=== PATIENT | female | born 1950 | race Caucasian/White ===

== ENCOUNTER 2018-08-04 16:54 | Emergency (ER) | payer MEDICARE, OTHER, SELFPAY ==
[2018-08-04 17:01] VITALS: BP 154/96; PULSE 89; RESP 19; TEMP 37; O2SAT 96; BMI 19.9
--- NOTE | 2018-08-04 17:16 | CT_ITS ---
STUDY: CT CERVICAL SPINE WITHOUT CONTRAST REASON FOR EXAM: Female, 68 years old. Fall RADIATION DOSAGE (If Supplied By Facility): CTDIvol = ( 16.67 ) mGy, DLP = ( 352.72 ) mGycm TECHNIQUE: High resolution transaxial imaging was performed without contrast material. Sagittal and coronal images were reconstructed. Individualized dose optimization techniques were used for this CT. COMPARISON: None available. FINDINGS: There is no evidence of fracture or dislocation in the cervical spine. The dens is intact. Alignment is normal. The vertebral body heights and disc spaces are well-maintained. The visualized paraspinal soft tissues are within normal limits. CT/Spine Cervical without Contras IMPRESSION: No fracture or dislocation in the cervical spine. Electronically Signed: Serafin Plummer, at 17:56 EDT Tel , Service support ,
--- NOTE | 2018-08-04 17:16 | CT_ITS ---
STUDY: CT BRAIN WITHOUT CONTRAST REASON FOR EXAM: Female, 68 years old. Fall. Dizziness RADIATION DOSAGE (If Supplied By Facility): CTDIvol = ( 44.99 ) mGy, DLP = ( 779.24 ) mGycm TECHNIQUE: Transaxial CT imaging of the brain was performed without administration of intravenous contrast material. Individualized dose optimization techniques were used for this CT. COMPARISON: None. FINDINGS: Soft tissue swelling on the right. There is a tripod fracture of the right zygoma and lateral wall of the orbit and maxilla. There is right temporal craniotomy. Normal size ventricles and extra-axial spaces for the patient's age. There are areas of decreased attenuation within the white matter tracts of the supratentorial brain, consistent with microvascular disease changes. There is right temporal diminished density . Normal basal ganglia and thalami. Normal brainstem. Normal cerebellum. There is no intracranial hemorrhage. There are no findings of an acute ischemic infarction. Fluid in the right maxillary sinus. CT/Brain/Head without Contrast IMPRESSION: Chronic involutional changes of the brain. Postoperative changes on the right with volume loss in the right temporal lobe. Right facial fractures. Electronically Signed: Mikey Banuelos MD at 18:10 EDT , Service support ,
--- NOTE | 2018-08-04 17:16 | CT_ITS ---
STUDY: CT FACIAL BONES WITHOUT CONTRAST REASON FOR EXAM: Female, 68 years old. Fall. Dizziness. RADIATION DOSAGE (If Supplied By Facility): CTDIvol = ( 29.38 ) mGy, DLP = ( 620.92 ) mGycm TECHNIQUE: The patient was scanned in a multi detector CT scanner. Sagittal and coronal images were reconstructed. Individualized dose optimization techniques were used for this CT. COMPARISON: None. FINDINGS: There is soft tissue swelling on the right. There is fracture of the right zygoma with angulation and mild displacement. There is fracture of the lateral wall of the left maxillary sinus. There is fracture of the lateral wall and the floor of the left orbit including extending through the infraorbital foramen. Fracture involves the orbital rim. Normal nasal bones and anterior nasal spine. There is arthritic change of the temporomandibular joints. Fluid in the right maxillary sinus. CT/Sinus/Facial Bone IMPRESSION: Tripod fracture on the right. Fracture of the floor and lateral wall and rim of the right orbit Electronically Signed: Mikey Banuelos MD at 18:16 EDT , Service support ,
[2018-08-04 18:54] LABS: Prothrombin Time (Protime)PT. 12.8 SECONDS (11.7-14.9)
[2018-08-04 18:55] LABS: Partial Thromboplast Time 26.2 Seconds (24.1-36.2)
[2018-08-04 18:56] LABS: Anion Gap 7 (5-15); BUN 7 mg/dL (7-18); BUN/Creat Ratio 6.5 RATIO (10-20); Calcium,Total 8.7 mg/dL (8.5-10.1); Chloride 99 mmol/L (98-107); Creatinine, Serum 1.08 mg/dL (0.55-1.02); EST Glomerular Filtration Rate 54 mL/min (>60); Est Glom Filt Rate - Afr Amer 65 mL/min (>60); Estimated Creatinine Clearance 42.56 ml/min; Glucose 108 mg/dL (74-106); Potassium 3.7 mmol/L (3.5-5.1); Sodium Level 137 mmol/L (136-145)
[2018-08-04 18:57] LABS: Absolute Neutrophil Count 9.1 X10^3/uL (2.0-7.7); Basophil# 0.01 X10^3/uL; Basophil% 0.1 % (0-1); Eosinophil# 0.02 X10^3/uL; Eosinophils% 0.2 % (0-5); Hematocrit 36.8 % (37-47); Lymphocyte % 6.8 % (19-41); Mean Corp Hgb Conc 32.6 g/gl (32-36); Mean Corpuscular Volume 98.1 fL (81-99); Monocyte# 0.47 X10^3/uL; Monocyte% 4.5 % (0-10); Neutrophil # 9.13 X10^3/uL (2.7-7.7); Neutrophil % 88.3 % (47-70); POSITIVE COUNT NO; POSITIVE DIFFERENTIAL NO; POSITIVE MORPHOLOGY NO; Platelet Count 242 K/mm3 (150-450); RBC Distribution Width CV 13.1 % (11.6-14.6); RBC Distribution Width SD 46.9 fl (35.1-43.9); Red Blood Count 3.75 M/mm3 (4.2-5.4); White Blood Count 10.3 K/mm3 (4.4-11.0)
--- NOTE | 2018-08-04 19:02 | ED.VISSUMM ---
- ER Visit Summary Date of Service: 08/04/18 Chief Complaint: Head injury History of Present Illness: The patient is a 68 F who states that she fell prior to arrival twice injuring the right side of her face. She states she feels very dizzy with her eyes open and that is why she is keeping her eyes shut. She states that the right side of her body is numb. No reported loss of consciousness. states that she has a seizure disorder for which she sees the [facility] and gets seizures what he describes as [place] whenever she gets excited. No reported blood thinners. Physical Examination: Afebrile vital signs are stable Patient has periorbital swelling and ecchymosis on the right. She has tenderness over the zygomatic arch. Her extraocular motions are intact. There is no hyphema or subconjunctival hemorrhage. There is no malocclusion. She does have a loose central incisor on the right which she states is chronic. She has some dried blood on her lips but I do not see an obvious source of that blood on the oropharynx. She is in a c-collar and backboard. No other outward signs of trauma noted Test Results: CT of head, cervical spine, and facial bones demonstrate a tripod fracture on the right with displacement of the zygomatic arch. Emergency Department Course and Treatment: Because of a GCS of 14 (eyes closed) patient will remain in a cervical collar. She will be transferred to [facility] (at the request of family) for trauma care. Impression: 1. Right tripod fracture 2. Concussion This note was generated with [employer] dictation software. It may contain incorrect words, spelling, and punctuation that were not noted in review of the chart prior to signing ED Disposition - Plan for ED Patient: Chief Complaint: Fall Referrals: Aguila Lainez MD [Primary Care Provider] -
[2018-08-04 19:03] VITALS: BP 140/88; PULSE 81; RESP 13; O2SAT 94
--- NOTE | 2018-08-04 19:11 | ED.DCSUM_ITS ---
- ER Visit Summary Date of Service: 08/04/18 Chief Complaint: Head injury History of Present Illness: The patient is a 68 F who states that she fell prior to arrival twice injuring the right side of her face. She states she feels very dizzy with her eyes open and that is why she is keeping her eyes shut. She states that the right side of her body is numb. No reported loss of consciousness. states that she has a seizure disorder for which she sees the [facility] and gets seizures what he describes as [place] whenever she gets excited. No reported blood thinners. Physical Examination: Afebrile vital signs are stable Patient has periorbital swelling and ecchymosis on the right. She has tenderness over the zygomatic arch. Her extraocular motions are intact. There is no hyphema or subconjunctival hemorrhage. There is no malocclusion. She does have a loose central incisor on the right which she states is chronic. She has some dried blood on her lips but I do not see an obvious source of that blood on the oropharynx. She is in a c-collar and backboard. No other outward signs of trauma noted Test Results: CT of head, cervical spine, and facial bones demonstrate a tripod fracture on the right with displacement of the zygomatic arch. Emergency Department Course and Treatment: Because of a GCS of 14 (eyes closed) patient will remain in a cervical collar. She will be transferred to [facility] (at the request of family) for trauma care. Impression: 1. Right tripod fracture 2. Concussion This note was generated with [employer] dictation software. It may contain incorrect words, spelling, and punctuation that were not noted in review of the chart prior to signing ED Disposition - Plan for ED Patient: Chief Complaint: Fall Referrals: Aguila Lainez MD [Primary Care Provider] -
[2018-08-04 19:13] VITALS: BP 140/88; PULSE 81; RESP 17; O2SAT 94
== END 2018-08-04 20:04 | disposition short-term general hospital (02) ==
LOC: ED 17:38
PROVIDERS: Emergency Provider Emergency Medicine
DX: S06.0X0A Concussion without loss of consciousness, initial encounter (principal); S02.40EA Zygomatic fracture, right side, initial encounter for closed fracture; G40.909 Epilepsy, unspecified, not intractable, without status epilepticus; Z79.82 Long term (current) use of aspirin; Z79.899 Other long term (current) drug therapy; X58.XXXA Exposure to other specified factors, initial encounter; Y93.89 Activity, other specified; Y92.89 Other specified places as the place of occurrence of the external cause; Y99.8 Other external cause status
CPT/HCPCS: 70450; 70486; 72125; 80048; 85025; 85610; 85730; 99285

== ENCOUNTER 2020-06-04 21:04 | Inpatient (IN) | payer MEDICARE, OTHER, SELFPAY ==
[2020-06-04 21:08] VITALS: BMI 21.0
[2020-06-04 21:11] VITALS: BP 124/74; PULSE 74; RESP 16; TEMP 37.1; O2SAT 94
--- NOTE | 2020-06-04 21:26 | HP.PCM_ITS ---
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 The patient is a 70 year old Female with below past medical history significant for seizure disorder, depression with followin05/25/2020 Admit to [facility]. 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 More falls, cognitive problems, tremors. Admitted for video EEG monitoring test to see if falls related to seizures versus neurodegenerative disease. CT brain showed chronic changes, ventricular system dilated. EEG shows no clear seizures. Falls likely related to neurodegenerative disease. 05/27/2020 FREIGHT INSPECTOR consulted for dysphagia. No overt signs or symptoms of aspiration. 05/30/2020 4 seizures recorded but not felt to be contributing to her falls, progressive debility. Debility thought related to uncontrolled depression, and fear of seizures. 06/02/2020 SVT responded to IV fluids, beta rishabh. 06/04/2020 Admit to for greater than 3 hours rehabilitation, strengthening, prior to discharge home with . Past Medical History Past Medical History (Chronic Problems): Chronic Problems Seizure disorder (Chronic) Gait difficulty (Chronic) Cognitive impairment (Chronic) Suicidal ideation (Chronic) Depression (Chronic) Chronic kidney disease (Chronic) Colon cancer (Chronic) Subdural hematoma (Chronic) Anxiety (Chronic) Allergies diazepam [From Valium] Adverse Reaction (Verified 08/04/18 17:04) Other divalproex sodium [From Depakote] Adverse Reaction (Verified 08/04/18 17:04) Other naproxen Adverse Reaction (Verified 08/04/18 17:04) Other phenobarbital Adverse Reaction (Verified 08/04/18 17:04) Other valproic acid Adverse Reaction (Verified 06/04/20 21:15) Abd cramps/diarrhea zonisamide [From Zonegran] Adverse Reaction (Verified 08/04/18 17:04) Other Home Medications: Ambulatory Orders Medication Instructions Recorded Calcium Carbonate [Calcium] 1,250 mg PO BID 08/04/18 Clonazepam [Klonopin] 0.5 mg PO QHS 08/04/18 Gabapentin [Neurontin] 300 mg PO BID 08/04/18 Lamotrigine [Lamictal] 125 mg PO DAILY 08/04/18 Surgical History: colectomy - Right., - - Right temporal lobectomy, Tympanic aspiration, tubal ligation, vagal nerve stimulator. 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 Review of Systems Constitutional: Denies: Chills, Fever, Weight Change HEENT: Denies: Head Aches, Sinus Congestion, Sinus Drainage Cardiovascular: Denies: Chest Pain, Palpitations Respiratory: Denies: Cough, Shortness of breath at rest, Sputum production Gastrointestinal: Denies: Abdominal Pain, Nausea, Vomiting Genitourinary: Denies: Dysuria Musculoskeletal: Denies: Joint Pain, Joint Tenderness Skin: Denies: Rash, Wounds Neurological: Denies: Numbness, Tingling, Focal weakness Psychiatric: Denies: Anxiety, Depression, Homicidal Ideations, Suicidal Ideations Hematologic/ Lymphatic: Denies: Easy Bruising, Easy Bleeding VTE Information - Inpt Only VTE Present on Admission: No VTE Mechan Device Prophylaxis: Knee High JEAN-PAUL Hose VTE Pharm Prophylaxis ordered?: No Reason prophylaxis not ordered:: Treatment Not Indicated Patient Problems: Active and Suspected Problems Debility (Acute) Falls (Acute) SVT (supraventricular tachycardia) (Acute) - Physical Exam Vitals/I&O's: Vital Signs Temp Pulse Resp BP Pulse Ox 98.7 F 74 16 124/74 H 94 06/04/20 21:11 06/04/20 21:11 06/04/20 21:11 06/04/20 21:11 06/04/20 21:11 Oxygen Delivery Method Room Air Weight: 52.163 kg Body Mass Index (BMI) 21.0 General: Alert, Oriented x3, Cooperative HEENT: Atraumatic, PERRLA, EOMI, Normocephalic Neck: Supple, No JVD, Negative Carotid Bruits Lungs: Clear to auscultation, Normal air movement Cardiovascular: Regular rate, No murmurs Abdomen: Bowel Sounds Present, Soft, Non Tender Extremities: No edema, Capillary Refill Less than 3 Seconds Skin: No rashes, No breakdown Musculoskeletal: No Tenderness to Palpation of Joints or Extremities Neurological: Cranial nerves II-XII grossly intact, - - Bilateral lower extremity weakness. Psych/Mental Status: Normal Affect, Appropriate Assessment/Plan All Active Problems Debility (Acute) Falls (Acute) SVT (supraventricular tachycardia) (Acute) 70 year old female with below past medical history significant for seizure disorder, hospitalized with progressive falls, debility, for video EEG to see if seizures causing falls, complicated by SVT, admitted to for greater than 3 hours daily rehabilitation, strengthening, prior to discharge home with . * Debility - PT/OT. * Aphasia - ST. * Pain - Tylenol 650MG Q4H PRN pain (1-10). * Bowel - Senna/colace 2 tablets BID, MOM 30ML PO PRN, Dulcolax 10MG WI daily PRN. * Calcium deficiency - Calcium 1250MG BID. * Depression - Celexa 40MG daily. * Anxiety - Clonazepam 0.5MG QHS. * Vitamin B12 deficiency - Vitamin B12 1000MCG daily. * Seizure disorder - Gabapentin 300MG BID, Vimpat 150MG BID, Lamictal Taper. * SVT - Metoprolol succinate 25MG daily. * Hypokalemia - KCL ER 10MEQ daily x 7 days, BMP in 2 days.
[2020-06-04 22:00] VITALS: BP 124/74; PULSE 74; RESP 16; TEMP 37.1; O2SAT 94
[2020-06-04 22:14] VITALS: BP 127/76; PULSE 79; RESP 16; TEMP 36.6; O2SAT 94
[2020-06-04 22:15] VITALS: BMI 21.0
[2020-06-04] MEDS: Gabapentin 300 MG Capsule PO (22:56)
[2020-06-04] MEDS: clonazePAM 0.5 MG Tablet PO (22:56)
[2020-06-04] MEDS: Lacosamide 50 MG Tablet 150 MG PO (22:56)
[2020-06-04] MEDS: Senna/Docusate Sodium 1 Tablet 2 TABLET PO (22:56)
--- NOTE | 2020-06-05 00:06 | NURSING ---
pt called spouse and this nurse spoke with spouse over phone to provide information about Inpatient Rehab. Spouse informed of Team Meeting on morning. Pt perseverating on clock on wall in room and what time it is. Pt exhibits bouts of confusion and requires reorientation to time of day.
[2020-06-05 05:44] LABS: Absolute Lymphocyte Count 1.39 X10^3/uL (0.83-4.51); Absolute Neutrophil Count 3.4 X10^3/uL (2.0-7.7); Basophil# 0.03 X10^3/uL; Basophil% 0.5 % (0-1); Eosinophil# 0.06 X10^3/uL; Eosinophils% 1.1 % (0-5); Hematocrit 36.6 % (37-47); Hemoglobin 12.3 g/dL (12.0-15.0); Lymphocyte # 1.39 X10^3/ul (4.0); Lymphocyte % 25.3 % (19-41); Mean Corp Hgb Conc 33.6 g/dL (32-36); Mean Corpuscular Volume 95.3 fL (81-99); Mean Platelet Vol. 9.5 fl (6.2-12.0); Monocyte% 10.9 % (0-10); NRBC Flagged by Analyzer 0 % (0-5); Platelet Count 270 K/mm3 (150-450); RBC Distribution Width CV 13.1 % (11.6-14.6); RBC Distribution Width SD 46.2 fl (35.1-43.9); Red Blood Count 3.84 M/mm3 (4.2-5.4); White Blood Count 5.5 K/mm3 (4.4-11.0)
[2020-06-05 06:11] LABS: ALB/GLOB Ratio 1.1 RATIO (0.9-2.4); AST(SGOT) 28 U/L (15-37); Alanine Aminotransfer ALT/SGPT 41 U/L (13-56); Albumin, Serum 3.7 g/dL (3.2-5.0); Alkaline Phosphatase 49 U/L (45-117); Anion Gap 7 (5-15); BUN 14 mg/dL (7-18); BUN/Creat Ratio 13.3 RATIO (10-20); Calcium,Total 8.9 mg/dL (8.5-10.1); Chloride 104 mmol/L (98-107); Creatinine, Serum 1.05 mg/dL (0.55-1.02); EST Glomerular Filtration Rate 55 mL/min (>60); Est Glom Filt Rate - Afr Amer 67 mL/min (>60); Estimated Creatinine Clearance 40.56 ml/min; Globulin 3.5 g/dL (2.2-4.2); Glucose 94 mg/dL (74-106); Potassium 3.4 mmol/L (3.5-5.1); Protein, Total 7.2 g/dL (6.4-8.2); Sodium Level 137 mmol/L (136-145)
[2020-06-05 06:30] VITALS: O2SAT 98
[2020-06-05] MEDS: lamoTRIgine 100 MG Tablet 125 MG PO (08:12)
[2020-06-05] MEDS: Gabapentin 300 MG Capsule PO ×2 (08:12→21:31)
[2020-06-05] MEDS: Calcium (Elemental) 500 MG Tablet PO ×2 (08:12→21:31)
[2020-06-05] MEDS: Cyanocobalamin 500 MCG Tablet 1000 MCG PO (08:12)
[2020-06-05] MEDS: Citalopram 40 MG TABLET PO (08:12)
[2020-06-05 08:13] VITALS: BP 140/92; PULSE 89
[2020-06-05] MEDS: Metoprolol(XL)Succ 25 MG Tablet PO (08:13)
[2020-06-05 08:17] VITALS: BP 140/92; PULSE 89; RESP 16; TEMP 36.7; O2SAT 95
[2020-06-05] MEDS: Lacosamide 50 MG Tablet 150 MG PO ×2 (08:19→21:32)
[2020-06-05] MEDS: Magnesium Hydroxide 30 ML UDC PO (16:44)
--- NOTE | 2020-06-05 16:45 | NURSING ---
MOM given at this time d/t constipation and no BM, results pending at this time.
--- NOTE | 2020-06-05 18:37 | NURSING ---
Pt sounding personal alarm x2 and disarming. Pressure pad alarm implemented to chair and bed, pt noted to have bouts of increased confusion, staff re-oriented when needed with little effect.
[2020-06-05] MEDS: clonazePAM 0.5 MG Tablet PO (21:31)
[2020-06-05 21:43] VITALS: BP 115/71; PULSE 85; RESP 17; TEMP 36.8; O2SAT 96
[2020-06-05 21:47] LABS: Bacteria 0 SEEN /hpf (None Seen); Mucous, Urine 0 SEEN /hpf (<or=2+); Squamous Epithelial Cells - UA 0 SEEN /hpf (5-10)
[2020-06-05 21:51] LABS: Color, Urine Yellow (Yellow); Glucose, Dipstick Normal (Normal); Ketone-Dipstick Negative (Negative); Leukocyte Esterase-Dipstick 100 /ul (Negative); Nitrite-Dipstick Negative (Negative); Occult Blood-Urine 150 /ul (Negative); Protein-Dipstick Negative (Negative); Specific Gravity, Urine 1.015 (1.002-1.030); Urine Bilirubin Dipstick Negative (Negative); Urine Clarity Clear (Clear); Urine Urobilinogen Normal (Normal); Urine pH 6.5 (5.0 - 8.0)
[2020-06-05 21:58] LABS: Red Blood Cells-Urine 0-5 SEEN /hpf (0-5); White Blood Cells 0-5 SEEN /hpf (0-5)
--- NOTE | 2020-06-06 07:58 | PCM.RU.PYE ---
Admission Information Primary Diagnosis:: Falls, Seizure disorder, Depression Status Changes from Prescreening?: No changes Identified Actual Problem List:: Falls, Cognitve Impr/Memory Loss, Depression, Mobility Impaired Potential Problem List:: DVT, Bleeding, Infection, UTI, Aspiration, Falls, Skin Integrity, Depression Risk of Complications DVT: LMWH, JEAN-PAUL Hose, Sequential Compression Device Bleeding: Monitor Lab Values, Nursing to Teach Precautions for anti-coagulation therapy., Wound, if applicable, to be assessed every shift., Stroke patients assessed for lethargy or change in status. Infection: Clinical Staff to Monitor for S/S of infection:, S/S of infection include fever, redness, warmth, etc. Urinary Tract Infection: Monitor for frequency, burning, discomfort, or incontinence., Nursing will obtain urine sample for urinalysis and C&S when ordered. Aspiration: Clinical staff will monitor for coughing, drooling, congestion., Speech will evaluate swallowing and dsyphasia., Nursing will monitor patient swallowing during meals. Falls: Patient will be evaluated for Fall Precautions, Patient will be placed on Fall Precautions as indicated per protocol. Skin Breakdown: Nursing will assess skin daily using assessment tool., Nursing will place on Skin Breakdown Precautions as indicated. Pain: Clinical staff will assess patient's pain level per protocol., Medications will be given, if needed, and the pain level reassessed., Other methods: Massage, distraction, decrease stimulus, etc. used PRN. Plan of Care Patient requires physician specializing in physical medicine and rehab oversight to provide close medical supervision of rehab issues including: Pain Management, Sleep Problems, Bowel and Bladder, Medical and co-morbidity Management, DVT prophylaxis, Rehabilitation Leadership, Coordination of treatment team Patient needs Physical Therapy: For a minimum of 1 hour, At least 5 out of 7 days Patient needs Physical Therapy to improve:: Mobility, Mobility, Mobility, Strengthening, Transfers, Stretching, ROM, Endurance, Stairs, Gait, Balance Patient needs Occupational Therapy: For a minimum of 1 hour, At least 5 out of 7 days Patient needs Occupational Therapy to improve ADL's incl.: Eating, Grooming, Bathing, Dressing, Toileting, Toilet transfers, Community Reintegration, Higher functioning activities, Household tasks, Adaptive Equipment, Splinting, Other activities as determined Patient requires speech therapy: For a minimum of 1 hour, At least 5 out of 7 days Patient requires speech therapy for: Swallowing, Cognition, Language Skills, Compensatory Strategies Patient requires 24/7 Rehabilitation Nursing for: Pain Issues, Identifying and preventing risk factors, Monitoring and reporting current medical conditions, Assisting with ambulation, transfer, and all ADL's, Teaching patients about disease process and medications, Family teaching, Providing safe environment, Bowel and Bladder Issues, Skin integrity, Medication Management Patient needs Youth Care Specialist/ Case Management for: Discharge Planning, Arranging Home Equipment or Services, Family Interventions Patient needs Dietary and Nutrition Services for: Adequate Nutrition, Nutritional Supplements, Nutritional Education Goals Patient will remain: free from falls, or injury at time of discharge. Patient will perform bed mobility at: Standby Assist. Patient will complete transfers from bed to chair at: - - Contact Guard Assist. Patient will ambulate: 100 feet, with LRD, - - Contact Guard Assist. Patient will propel wheelchair: 50 feet Patient will complete upper body dressing at: MOD I level of assist. Patient will complete lower body dressing at: MOD I level of assist. Patient will complete toileting at: - - Contact Guard Assist. Patient will perform bathing at: MOD I level of assist. Patient will complete grooming at: - - Supervision. Patient will complete home management skills at: MOD I level of assist. Patient will achieve: at MOD I assist Patient will have pain level of: of 3 or less Patient's skin will: remain intact, free from infection. Patient will receive: adequate nutrition. Discharge Planning Pt Prognosis for Sig. Practical Improv. w/in Reasonable Time: Good Anticipated D/C Destination: Home w/ family or friends Was Preadmission Assessment Accurate?: Yes
[2020-06-06 08:00] VITALS: BP 138/93; PULSE 84; RESP 16; TEMP 36.6; O2SAT 96
--- NOTE | 2020-06-06 09:01 | CASEMGMT ---
Social Work IDT met with patient and for Team meeting. Discussed patient's progress in therapy. Pt is [place] for transfers, has retrolean when stands, ambulating 20 ft with FWW, modX1 for LE dressing, toileting and bathing due to retrolean. assist with minimal self-care prior and pt could showering independently. However, he does report to pt having retrolean prior. Nursing is giving total assist for toileting and tasks. ST is working on comprehension, recall, ST memory, attention and word finding. assist with finances and meds prior. Pt is not sleeping well. Physician ordered Trazodone to assist. Inquired about previous psych hx - stated she is active with Dr. Stevens out [facility]. SW will schedule f/u appt at [place]. reports to meds and counseling assisting prior but has noticed decline. Staff noting paranoia, fixation. Will continue to monitor. Explained Medicare coverage and will provide ELOS when days approved. Will ReTeam next week. STEPAN Brenner SVP MONET[employer]ATION
[2020-06-06] MEDS: lamoTRIgine 100 MG Tablet 125 MG PO (09:48)
[2020-06-06] MEDS: Citalopram 40 MG TABLET PO (09:48)
[2020-06-06] MEDS: CEFUROXIME AXETIL 250 MG TABLET 500 MG PO ×2 (09:48→21:57)
[2020-06-06] MEDS: Gabapentin 300 MG Capsule PO ×2 (09:48→21:57)
[2020-06-06 09:49] VITALS: BP 138/93; PULSE 84
[2020-06-06] MEDS: Calcium (Elemental) 500 MG Tablet PO ×2 (09:49→22:15)
[2020-06-06] MEDS: Cyanocobalamin 500 MCG Tablet 1000 MCG PO (09:49)
[2020-06-06] MEDS: Metoprolol(XL)Succ 25 MG Tablet PO (09:49)
[2020-06-06] MEDS: Lacosamide 50 MG Tablet 150 MG PO ×2 (09:53→21:56)
[2020-06-06 18:56] VITALS: BP 129/68; PULSE 82; RESP 18; TEMP 36.6; O2SAT 99
--- NOTE | 2020-06-06 20:51 | PCM.PROGNOTE ---
Patient Problems: Active and Suspected Problems Debility (Acute) Falls (Acute) SVT (supraventricular tachycardia) (Acute) Subjective: Resident seen on Team Rounds today. Her is present. She does not remember meeting me yesterday despite having long sit down meeting with me. She had dysuria, urinary urgency, UA, C+S sent. - Physical Exam Vitals/I&O's: Vital Signs Temp Pulse Resp BP Pulse Ox 97.9 F 82 18 129/68 H 99 06/06/20 18:56 06/06/20 18:56 06/06/20 18:56 06/06/20 18:56 06/06/20 18:56 Oxygen Delivery Method Room Air Weight: 51.1 kg Body Mass Index (BMI) 21.0 Intake and Output for Last 24 Hours 06/04/20 06/05/20 06/06/20 23:59 23:59 23:59 Intake Total 60 / 120 1540 / 1540 1040 / 1040 Output Total 200 / 200 Balance 60 / 120 1340 / 1340 1040 / 1040 General: Alert, Oriented x3, Cooperative HEENT: Atraumatic, PERRLA, EOMI, Normocephalic Neck: Supple, No JVD, Negative Carotid Bruits Lungs: Clear to auscultation, Normal air movement Cardiovascular: Regular rate, No murmurs Abdomen: Bowel Sounds Present, Soft, Non Tender Extremities: No edema, Capillary Refill Less than 3 Seconds Skin: No rashes, No breakdown Musculoskeletal: No Tenderness to Palpation of Joints or Extremities Neurological: Cranial nerves II-XII grossly intact Psych/Mental Status: Normal Affect, Appropriate Laboratory Results 06/05/20 21:25: Urine Color Yellow, Urine Clarity Clear, Urine pH 6.5, Ur Specific Treadwell 1.015, Urine Protein Negative, Urine Glucose (UA) Normal, Urine Ketones Negative, Urine Occult Blood 150 H, Urine Nitrite Negative, Urine Bilirubin Negative, Urine Urobilinogen Normal, Ur Leukocyte Esterase 100 H, Urine RBC 0-5 SEEN, Urine WBC 0-5 SEEN, Ur Squamous Epith Cells 0 SEEN, Urine Bacteria 0 SEEN, Urine Mucus 0 SEEN Current Medications Acetaminophen (Tylenol) 650 mg PO Q4H PRN PRN PRN Reason: Pain Score 1-10/10 Bisacodyl (Dulcolax) 10 mg RECTAL .PRN X 1 PRN PRN Reason: Constipation Calcium Carbonate (Os-Rudy 500) 500 mg PO BID [facility] Last Admin: 06/06/20 09:49 Dose: 500 mg Documented by: Cefuroxime Axetil (Ceftin) 500 mg PO Q12 [facility] Stop: 06/13/20 10:01 Last Admin: 06/06/20 09:48 Dose: 500 mg Documented by: Citalopram Hydrobromide (Celexa) 40 mg PO DAILY [facility] Last Admin: 06/06/20 09:48 Dose: 40 mg Documented by: Clonazepam (Klonopin) 0.5 mg PO QHS [facility] Last Admin: 06/05/20 21:31 Dose: 0.5 mg Documented by: Cyanocobalamin (Vitamin B12) 1,000 mcg PO DAILY@0800 [facility] Last Admin: 06/06/20 09:49 Dose: 1,000 mcg Documented by: Gabapentin (Neurontin) 300 mg PO BID [facility] Last Admin: 06/06/20 09:48 Dose: 300 mg Documented by: Lacosamide (Vimpat) 150 mg PO BID [facility] Last Admin: 06/06/20 09:53 Dose: 150 mg Documented by: Lamotrigine (Lamictal) 125 mg PO DAILY [facility] Stop: 06/12/20 10:00 Last Admin: 06/06/20 09:48 Dose: 125 mg Documented by: Lamotrigine (Lamictal) 125 mg PO DAILY [facility] Stop: 06/19/20 10:00 Lamotrigine (Lamictal) 150 mg PO BID [facility] Lamotrigine (Lamictal) 150 mg PO QHS [facility] Stop: 06/19/20 22:01 Magnesium Hydroxide (Milk Of Magnesia) 30 ml PO .PRN X 1 PRN PRN Reason: Constipation Last Admin: 06/05/20 16:44 Dose: 30 ml Documented by: Metoprolol Succinate (Toprol Xl (Beta Torsten)) 25 mg PO DAILY [facility] Last Admin: 06/06/20 09:49 Dose: 25 mg Documented by: Nutritional Formula (Lactose Free) (Ensure Enlive) 120 ml PO 4X/DAY [facility] Last Admin: 06/06/20 16:57 Dose: 120 ml Documented by: [facility] ([facility]Dur) [facility] Last Admin: 06/06/20 09:48 Dose: 10 meq Documented by: Senna/Docusate Sodium (Senokot-S, Ely-Colace) 2 tablet PO BID [facility] Last Admin: 06/06/20 09:52 Dose: Not Given Documented by: Trazodone HCl (Desyrel) 50 mg PO QHS [facility] Capacity - Capacity Assessment Tool Can the patient make a choice & communicate that choice?: Yes Can the patient understand benefits, risks and alternatives?: Unable to Determine Can the patient make a logical, rational choice?: Yes Is the choice the patient makes consistent w/ their values?: Yes Is there an impending, emergent risk to the patient?: No Does the patient have an Advance Directive?: No Is there a Surrogate Available?: Yes i.e. HCPOA: Yes i.e. close relative (spouse, child, parent, sibling)?: Yes Medical Necessity - Tobacco Use Smoking Status: Former smoker Tobacco Use: Non-smoker Assessment/Plan All Active Problems Debility (Acute) Falls (Acute) SVT (supraventricular tachycardia) (Acute) 70 year old female with below past medical history significant for seizure disorder, hospitalized with progressive falls, debility, for video EEG to see if seizures causing falls, complicated by SVT, admitted to for greater than 3 hours daily rehabilitation, strengthening, prior to discharge home with . Debility - PT/OT. Aphasia - ST. Pain - Tylenol 650MG Q4H PRN pain (1-10). Bowel - Senna/colace 2 tablets BID, MOM 30ML PO PRN, Dulcolax 10MG AL daily PRN. Calcium deficiency - Calcium 1250MG BID. Depression - Celexa 40MG daily. Anxiety - Clonazepam 0.5MG QHS. Vitamin B12 deficiency - Vitamin B12 1000MCG daily. Seizure disorder - Gabapentin 300MG BID, Vimpat 150MG BID, Lamictal Taper. SVT - Metoprolol succinate 25MG daily. Hypokalemia - KCL ER 10MEQ daily x 7 days, BMP in 2 days. ?UTI - Cefuroxime 500MG Q12H x 7 days, if urine culture negative, stop antibiotic.
[2020-06-06] MEDS: clonazePAM 0.5 MG Tablet PO (21:56)
[2020-06-06] MEDS: traZODone 50 MG Tablet PO (21:57)
[2020-06-06] MEDS: Acetaminophen 325 MG Tablet 650 MG PO (22:17)
[2020-06-07 05:50] LABS: Anion Gap 3 (5-15); BUN 21 mg/dL (7-18); BUN/Creat Ratio 18.4 RATIO (10-20); Calcium,Total 8.8 mg/dL (8.5-10.1); Chloride 105 mmol/L (98-107); Creatinine, Serum 1.14 mg/dL (0.55-1.02); EST Glomerular Filtration Rate 50 mL/min (>60); Est Glom Filt Rate - Afr Amer 61 mL/min (>60); Estimated Creatinine Clearance 37.36 ml/min; Glucose 87 mg/dL (74-106); Sodium Level 139 mmol/L (136-145)
[2020-06-07 07:28] VITALS: BP 122/71; PULSE 81; RESP 16; TEMP 36.4; O2SAT 95
[2020-06-07] MEDS: Cyanocobalamin 500 MCG Tablet 1000 MCG PO (07:29)
[2020-06-07] MEDS: CEFUROXIME AXETIL 250 MG TABLET 500 MG PO ×2 (07:29→20:50)
[2020-06-07] MEDS: Citalopram 40 MG TABLET PO (07:29)
[2020-06-07] MEDS: lamoTRIgine 100 MG Tablet 125 MG PO (07:30)
[2020-06-07] MEDS: Calcium (Elemental) 500 MG Tablet PO ×2 (07:30→20:50)
[2020-06-07] MEDS: Gabapentin 300 MG Capsule PO ×2 (07:30→20:50)
[2020-06-07 07:31] VITALS: PULSE 72
[2020-06-07] MEDS: Senna/Docusate Sodium 1 Tablet 2 TABLET PO ×2 (07:31→20:50)
[2020-06-07] MEDS: Metoprolol(XL)Succ 25 MG Tablet PO (07:31)
[2020-06-07] MEDS: Lacosamide 50 MG Tablet 150 MG PO ×2 (07:34→20:50)
--- NOTE | 2020-06-07 12:00 | NURSING ---
Dr. Myers aware of current UA C&S results. NNO's. Patient reports she feels better since being on the ATB and no adverse reactions noted. Patient reports she still feels urinary pressure at times. Will monitor.
[2020-06-07] MEDS: Acetaminophen 325 MG Tablet 650 MG PO (16:16)
[2020-06-07] MEDS: traZODone 50 MG Tablet PO (20:51)
[2020-06-07] MEDS: clonazePAM 0.5 MG Tablet PO (20:51)
[2020-06-07 21:46] VITALS: BP 103/56; PULSE 91; RESP 16; TEMP 36.7; O2SAT 95
[2020-06-08 07:29] VITALS: O2SAT 96
[2020-06-08 08:04] VITALS: BP 102/61; PULSE 79; RESP 18; TEMP 36.8; O2SAT 96
[2020-06-08] MEDS: CEFUROXIME AXETIL 250 MG TABLET 500 MG PO ×2 (08:06→22:17)
[2020-06-08] MEDS: Cyanocobalamin 500 MCG Tablet 1000 MCG PO (08:06)
[2020-06-08] MEDS: Citalopram 40 MG TABLET PO (08:07)
[2020-06-08] MEDS: Lacosamide 50 MG Tablet 150 MG PO ×2 (08:07→22:17)
[2020-06-08 08:08] VITALS: PULSE 70
[2020-06-08] MEDS: lamoTRIgine 100 MG Tablet 125 MG PO (08:08)
[2020-06-08] MEDS: Metoprolol(XL)Succ 25 MG Tablet PO (08:08)
[2020-06-08] MEDS: Senna/Docusate Sodium 1 Tablet 2 TABLET PO ×2 (08:08→22:17)
[2020-06-08] MEDS: Gabapentin 300 MG Capsule PO ×2 (08:09→22:17)
[2020-06-08] MEDS: Calcium (Elemental) 500 MG Tablet PO ×2 (08:09→22:17)
[2020-06-08 18:59] VITALS: BP 132/80; PULSE 75; RESP 16; TEMP 36.8; O2SAT 95
[2020-06-08 22:00] VITALS: RESP 16
[2020-06-08] MEDS: traZODone 50 MG Tablet PO (22:17)
[2020-06-08] MEDS: clonazePAM 0.5 MG Tablet PO (22:19)
[2020-06-09 07:27] VITALS: BP 111/56; PULSE 76; RESP 18; TEMP 36.6; O2SAT 95
[2020-06-09] MEDS: Cyanocobalamin 500 MCG Tablet 1000 MCG PO (07:28)
[2020-06-09] MEDS: Citalopram 40 MG TABLET PO (07:29)
[2020-06-09] MEDS: CEFUROXIME AXETIL 250 MG TABLET 500 MG PO ×2 (07:29→20:39)
[2020-06-09] MEDS: Gabapentin 300 MG Capsule PO ×2 (07:30→20:40)
[2020-06-09] MEDS: Calcium (Elemental) 500 MG Tablet PO ×2 (07:30→20:40)
[2020-06-09] MEDS: lamoTRIgine 100 MG Tablet 125 MG PO (07:30)
[2020-06-09 07:31] VITALS: PULSE 72
[2020-06-09] MEDS: Metoprolol(XL)Succ 25 MG Tablet PO (07:31)
[2020-06-09] MEDS: Lacosamide 50 MG Tablet 150 MG PO ×2 (07:31→20:43)
[2020-06-09] MEDS: traZODone 50 MG Tablet PO (20:44)
[2020-06-09] MEDS: clonazePAM 0.5 MG Tablet PO (20:47)
[2020-06-09 21:01] VITALS: BP 98/64; PULSE 94; RESP 16; TEMP 36.2; O2SAT 94
[2020-06-10] MEDS: Gabapentin 300 MG Capsule PO ×2 (08:10→20:54)
[2020-06-10] MEDS: Citalopram 40 MG TABLET PO (08:10)
[2020-06-10] MEDS: CEFUROXIME AXETIL 250 MG TABLET 500 MG PO ×2 (08:10→20:54)
[2020-06-10] MEDS: Cyanocobalamin 500 MCG Tablet 1000 MCG PO (08:10)
[2020-06-10 08:11] VITALS: PULSE 80
[2020-06-10] MEDS: Lacosamide 50 MG Tablet 150 MG PO ×2 (08:11→21:16)
[2020-06-10] MEDS: Metoprolol(XL)Succ 25 MG Tablet PO (08:11)
[2020-06-10] MEDS: Calcium (Elemental) 500 MG Tablet PO ×2 (08:11→20:54)
[2020-06-10] MEDS: lamoTRIgine 100 MG Tablet 125 MG PO (08:12)
[2020-06-10] MEDS: Senna/Docusate Sodium 1 Tablet 2 TABLET PO ×2 (08:16→20:54)
[2020-06-10 08:37] VITALS: BP 102/66; PULSE 72; RESP 16; TEMP 36.5; O2SAT 95
[2020-06-10 19:45] VITALS: BP 101/59; PULSE 80; RESP 16; TEMP 36.7; O2SAT 95
[2020-06-10] MEDS: traZODone 50 MG Tablet PO (20:54)
[2020-06-10] MEDS: clonazePAM 0.5 MG Tablet PO (21:15)
[2020-06-11 07:19] VITALS: BP 110/60; PULSE 55; RESP 16; TEMP 36.7; O2SAT 98
[2020-06-11] MEDS: CEFUROXIME AXETIL 250 MG TABLET 500 MG PO ×2 (07:56→21:08)
[2020-06-11] MEDS: Cyanocobalamin 500 MCG Tablet 1000 MCG PO (07:56)
[2020-06-11] MEDS: lamoTRIgine 100 MG Tablet 125 MG PO (07:56)
[2020-06-11] MEDS: Citalopram 40 MG TABLET PO (07:56)
[2020-06-11 07:57] VITALS: PULSE 62
[2020-06-11] MEDS: Gabapentin 300 MG Capsule PO ×2 (07:57→21:08)
[2020-06-11] MEDS: Calcium (Elemental) 500 MG Tablet PO ×2 (07:57→21:08)
[2020-06-11] MEDS: Metoprolol(XL)Succ 25 MG Tablet PO (07:57)
[2020-06-11] MEDS: Lacosamide 50 MG Tablet 150 MG PO ×2 (08:07→21:30)
[2020-06-11 20:13] VITALS: BP 114/67; PULSE 70; RESP 16; TEMP 36.4; O2SAT 96
[2020-06-11] MEDS: Senna/Docusate Sodium 1 Tablet 2 TABLET PO (21:07)
[2020-06-11] MEDS: traZODone 50 MG Tablet PO (21:08)
[2020-06-11] MEDS: clonazePAM 0.5 MG Tablet PO (21:29)
[2020-06-12] MEDS: Cyanocobalamin 500 MCG Tablet 1000 MCG PO (07:48)
[2020-06-12] MEDS: Lacosamide 50 MG Tablet 150 MG PO ×2 (08:54→21:32)
[2020-06-12] MEDS: Citalopram 40 MG TABLET PO (09:00)
[2020-06-12] MEDS: Gabapentin 300 MG Capsule PO ×2 (09:01→21:28)
[2020-06-12] MEDS: Senna/Docusate Sodium 1 Tablet 2 TABLET PO ×2 (09:01→21:29)
[2020-06-12] MEDS: Calcium (Elemental) 500 MG Tablet PO ×2 (09:02→21:29)
[2020-06-12 09:03] VITALS: PULSE 61
[2020-06-12] MEDS: Metoprolol(XL)Succ 25 MG Tablet PO (09:03)
[2020-06-12] MEDS: CEFUROXIME AXETIL 250 MG TABLET 500 MG PO ×2 (09:04→21:29)
[2020-06-12] MEDS: lamoTRIgine 100 MG Tablet 125 MG PO (09:04)
[2020-06-12 09:09] VITALS: BP 122/72; PULSE 61; RESP 16; TEMP 36.8; O2SAT 97
[2020-06-12 20:29] VITALS: BP 106/62; PULSE 89; RESP 16; TEMP 36.6; O2SAT 93
[2020-06-12 21:15] VITALS: PULSE 89; RESP 16; O2SAT 93
[2020-06-12] MEDS: clonazePAM 0.5 MG Tablet PO (21:29)
[2020-06-12] MEDS: traZODone 50 MG Tablet PO (21:29)
--- NOTE | 2020-06-13 04:24 | NURSING ---
REVIEWED AND AGREE WITH PET HANDLER'S FUNCTIONAL ASSESSMENT AND HANDOFF CHARTING.
[2020-06-13 07:41] VITALS: BP 129/75; PULSE 62; RESP 16; TEMP 36.4; O2SAT 96
[2020-06-13] MEDS: Cyanocobalamin 500 MCG Tablet 1000 MCG PO (08:07)
[2020-06-13] MEDS: CEFUROXIME AXETIL 250 MG TABLET 500 MG PO (08:07)
[2020-06-13] MEDS: Citalopram 40 MG TABLET PO (08:07)
[2020-06-13 08:08] VITALS: BP 129/75; PULSE 62
[2020-06-13] MEDS: Calcium (Elemental) 500 MG Tablet PO ×2 (08:08→20:14)
[2020-06-13] MEDS: Metoprolol(XL)Succ 25 MG Tablet PO (08:08)
[2020-06-13] MEDS: Senna/Docusate Sodium 1 Tablet 2 TABLET PO ×2 (08:08→20:15)
[2020-06-13] MEDS: Gabapentin 300 MG Capsule PO ×2 (08:08→20:15)
[2020-06-13] MEDS: Lacosamide 50 MG Tablet 150 MG PO ×2 (08:09→20:14)
[2020-06-13] MEDS: lamoTRIgine 100 MG Tablet 125 MG PO (08:38)
--- NOTE | 2020-06-13 10:24 | CASEMGMT ---
Social Work IDT met with patient for Team meeting. Discussed patient's progress in therapy. Pt is CGA for transfers, multiple surfaces, ambulating over 200ft with FWW SBA-CGA, completed flight of steps CGA, and is very cautious. Completed a floor transfer SBA, pt is more aware of retrolean and improving with self-corrections. ST working on problem solving, safety awareness 80% accuracy, improved attention, still working on memory and using memory book. Explained Medicare benefit approved 15 days with DC 06/20. Pt agreeable to DC date. Pt will DC home with and [facility] PT/OT/ST/SN. Will continue to follow to finalize DC plans. Belen Spears, STEPAN MCNALLYW
--- NOTE | 2020-06-13 11:36 | PN_ITS ---
Progress Note Valeri was seen on team rounds today. No family was present. She lives with her significant other. She was recently admitted to [facility] for continuous video EEG monitoring to exclude seizures as the etiology of frequent falls. I reviewed the history and physical done by Dr. Myers at admission. 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 CT scan at [facility] showed ventricular dilatation. Her falls, trouble with confusion and tremors were concluded to be secondary to neurodegenerative disease and not to seizures. She was admitted to the inpatient rehab unit at [facility] on 06/04/2024 3 hours of therapy daily to restore her to her prior level of function. Afebrile VSS Maintaining appropriate oxygen saturation on RA Oral intake is erratic. She has gained 10 lbs since admission? Discussed with nursing - no problems that need addressed Reviewed the PT/OT/ST notes Medication list reviewed. She is currently on Vimpat 150 mg twice daily and also citalopram 40 mg daily. There is a drug interaction as both medications increase serotonin levels. She is also on Lamictal. She takes clonazepam 0.5 mg nightly and also trazodone 50 mg nightly. She appears older than her stated age She is alert, a little slow to answer questions. She is also slow and very deliberate in her movements. She has head tremor and hand tremor MM - dry Lungs - CTA with good air exchange H-RRR, no no gallop no edema abd - soft and NT no calf tenderness No focal neurologic deficits Impressions 1. seizure disorder - now on 4 AED's after recent admission to [facility] for VEEG - including gabapentin 300 mg twice daily, Lamictal 150 mg twice daily, perampanel 2 mg Q HS and Vimpat 150 mg BID 2. depression - long standing. Follows every [address] Stevens. No recent changes in Celexa. Not getting therapy 3. Hx of colon CA. Had 2 benign polyps extracted in 2019 4. anemia 5. severe LAE, Severe LV dilatation with preserved EF on recent ECHO at [facility] - does she have any AF? She had an episode of SVT at [facility] that may have been Aflutter 6. Tremor - I suspect this may be due to Celexa Decrease citalopram dosage. The highest recommended dose in patients over the age of 60 is 20 mg daily. She takes multiple drugs that cause INVESTIGATIVE ASSISTANT depression including Klonopin, gabapentin, Lamictal, trazodone. Trazodone is also a tricyclic antidepressant which can increase serotonin levels and lead to serotonin syndrome in patients taking high doses of SSRIs. This contributes to tremor and autonomic instability. DC trazodone but continue Klonopin 0.5 mg at at bedtime.....would prefer to get her off benzo's as they also contribute to INVESTIGATIVE ASSISTANT depression and confusion. Orthostatic vital signs in the a.m. x2 EKG tomorrow-she is on a few different medications that prolong QT interval. Recheck CBC, BMP, mag and phosphorus in the a.m. STROKE Vital Signs/Narrative: Vital Signs Temp Pulse Resp BP Pulse Ox 06/13/20 08:08 62 129/75 H 06/13/20 07:41 97.5 F L 62 16 129/75 H 96 Inpatient E&M: 74440 Subs Hosp L2
[2020-06-13 19:32] VITALS: BP 100/58; PULSE 69; RESP 18; TEMP 36.7; O2SAT 100
[2020-06-13] MEDS: lamoTRIgine 150 MG Tablet PO (20:15)
[2020-06-13] MEDS: clonazePAM 0.5 MG Tablet PO (20:15)
[2020-06-13 20:20] VITALS: PULSE 69; RESP 18; O2SAT 100
--- NOTE | 2020-06-14 03:51 | NURSING ---
Reviewed and agree with GROUP PROGRAM MANAGER documentation and charting.
[2020-06-14 05:46] LABS: Hematocrit 35.2 % (37-47); Hemoglobin 11.1 g/dL (12.0-15.0); Mean Corp Hgb Conc 31.5 g/dL (32-36); Mean Corpuscular Hgb 31.3 pg (27.0-32.0); Mean Corpuscular Volume 99.2 fL (81-99); Mean Platelet Vol. 9.5 fl (6.2-12.0); Platelet Count 294 K/mm3 (150-450); RBC Distribution Width CV 13.7 % (11.6-14.6); RBC Distribution Width SD 50.9 fl (35.1-43.9); Red Blood Count 3.55 M/mm3 (4.2-5.4); White Blood Count 5.4 K/mm3 (4.4-11.0)
[2020-06-14 06:00] VITALS: BP 106/71; BP 122/83; BP 129/89; PULSE 74; PULSE 79; PULSE 82
[2020-06-14 06:07] LABS: Anion Gap 3 (5-15); BUN 24 mg/dL (7-18); BUN/Creat Ratio 26.6 RATIO (10-20); Calcium,Total 8.9 mg/dL (8.5-10.1); Chloride 104 mmol/L (98-107); EST Glomerular Filtration Rate 66 mL/min (>60); Est Glom Filt Rate - Afr Amer 80 mL/min (>60); Estimated Creatinine Clearance 47.32 ml/min; Glucose 88 mg/dL (74-106); Magnesium 2.4 mg/dL (1.6-2.6); Phosphorus 3.4 mg/dL (2.5-4.9); Potassium 4.3 mmol/L (3.5-5.1); Sodium Level 138 mmol/L (136-145)
[2020-06-14] MEDS: Citalopram 20 MG Tablet PO (08:06)
[2020-06-14] MEDS: Cyanocobalamin 500 MCG Tablet 1000 MCG PO (08:06)
[2020-06-14 08:07] VITALS: PULSE 72
[2020-06-14] MEDS: Lacosamide 50 MG Tablet 150 MG PO ×2 (08:07→21:29)
[2020-06-14] MEDS: Gabapentin 300 MG Capsule PO ×2 (08:07→21:20)
[2020-06-14] MEDS: Senna/Docusate Sodium 1 Tablet 2 TABLET PO (08:07)
[2020-06-14] MEDS: Metoprolol(XL)Succ 25 MG Tablet PO (08:07)
[2020-06-14] MEDS: lamoTRIgine 100 MG Tablet 125 MG PO (08:07)
[2020-06-14] MEDS: Calcium (Elemental) 500 MG Tablet PO ×2 (08:07→21:29)
[2020-06-14 08:42] VITALS: BP 107/69; PULSE 69; RESP 18; TEMP 36.6; O2SAT 95
--- NOTE | 2020-06-14 09:15 | CASEMGMT ---
Social Work Spoke with dtr about DC needs for pt. HHC vs OP. Dtr would like [facility] but has reservations about people coming into the home. Will contact to explain. Dtr appreciative. Belen Spears, ASSAYER HELPER CASH APPLICATIONS MANAGER
--- NOTE | 2020-06-14 10:25 | PN_ITS ---
Progress Note Afebrile Orthostatic vital signs are positive today. The blood pressure went from 122/83 lying to 106/71 standing. Pulse increased from 74-82 when going from lying to standing. She is on metoprolol 25 mg daily. Maintaining appropriate oxygen saturation on RA Oral intake is poor Weight has decreased 121 pounds and 14 ounces on 06/12/2022 118 pounds today. Discussed with nursing - no problems that need addressed Reviewed the PT/OT/ST notes Medication list reviewed. All lab was personally reviewed. The white blood cell count is normal at 5.4 and platelets are normal at 294,000. Hemoglobin has dropped to 11.1 from 12.3 on 06/05/2020. The BUN is 24 and the creatinine is 0.9, down from 1.14 on 06/07/2020. Sodium is 138 and potassium is 4.3. Phosphorus and magnesium are within normal limits. Her only complaint is some lightheadedness when going from sitting to standing. She denies chest pain, shortness of breath, nausea, vomiting. She is fearful of falling. She knows that she is doing better in therapy but, is worried what will happen at home when she does not have the therapists around. She tells me that she sees a psychiatrist, Dr. Stevens, and has seen him for many years. Usually she does not get therapy unless she asks for it. She has been on the same medications for years. She denies any suicidal ideation and has no desire to harm herself. She tells me she slept well last night, trazodone was discontinued due to the serotonergic effect of trazodone in addition to the very large dose of citalopram. Citalopram was decreased to 20 mg this AM. Alert, oriented x3, no apparent distress, sitting in the recliner at the bedside. Mucous membranes are dry Lungs-clear to auscultation throughout with excellent air exchange Heart-regular rate and rhythm without murmur, no gallop, no rub Abdomen-she has a little tenderness in the right lower quadrant with palpation and the abdomen is more firm there. She does have a problem with chronic constipation. She did have a bowel movement today. I suspect she may have a large stool accumulation in the right colon. No peripheral edema She has some tenderness at the top of the calves bilaterally which she attributes to the JEAN-PAUL hose. There is no pain in the gastrocnemius muscle bilaterally. She did very well with OT today. Her speech is more fluent today and she is making conversation. Movement is not as slow as yesterday and she has no tremor today. Impressions 1. debility due to frequent falls presumed to be due to neurodegenerative disease. Video EEG at [facility] recently was not consistent with seizures as the etiology of her falls. I suspect the falls may be due to overmedication and dysequilibrium related to too much serotonin due to 40 mg Citalopram daily and Trazodone at . She is also on several medications that are THERAPEUTIC RECREATION ASSISTANT depressants......Trazodone, Lamictal, Gabapentin, Clonazepam. Citalopram has been decreased to the highest recommended dose for those > 60YOA which is 20 mg daily and the Trazodone has been discontinued. 2. Depression - I think that currently her biggest problem is fear of falling and this would be best treated with therapy....will refer to the [facility] for therapy post DC. 3. Orthostatic hypotension due to IV volume depletion 4. Mild macrocytic anemia Check Hemoccult stool IV normal saline at 75 cc/h x 2 L BMP, magnesium, phosphorus, CBC on 06/17/2020 Continue decreased dose of citalopram. Refer for psychotherapy post discharge to work on her fear of falling Repeat orthostatic blood pressures on Wednesday morning. STROKE Vital Signs/Narrative: Vital Signs Temp Pulse Resp BP Pulse Ox 06/14/20 08:42 98 F 69 18 107/69 95 06/14/20 08:07 72
--- NOTE | 2020-06-14 12:11 | RAD_ITS ---
STUDY: X-RAY - ABDOMEN/PELVIS REASON FOR EXAM: Female, 70 years old. RLQ pain, and quot;fecal accumulation and quot; TECHNIQUE: Single AP view of the abdomen / pelvis. COMPARISON: None. FINDINGS: Normal visualized lung bases. Moderate fecal retention, otherwise unremarkable bowel gas pattern. There is no demonstrated free abdominal air. The visualized liver, spleen and kidneys are grossly normal in size and morphology. Normal soft tissue structures. Normal visualized osseous structures. RAD/Abdomen Single View IMPRESSION: Moderate fecal retention. Electronically Signed: Nikko Conway MD at 16:58 EDT , Service support ,
[2020-06-14] MEDS: 0.9% Normal Saline 1,000 ML 75 ML IV (12:52)
[2020-06-14 13:00] VITALS: BP 101/70; BP 103/58; BP 120/70; PULSE 86; PULSE 88; PULSE 91
[2020-06-14] MEDS: 0.9% Saline Lock 10 ML Syringe IV (14:55)
[2020-06-14] MEDS: Magnesium Citrate 300 ML 150 ML PO (15:07)
[2020-06-14 21:06] VITALS: BP 103/77; PULSE 81; RESP 16; TEMP 36.6; O2SAT 96
[2020-06-14] MEDS: lamoTRIgine 150 MG Tablet PO (21:20)
[2020-06-14] MEDS: clonazePAM 0.5 MG Tablet PO (21:29)
[2020-06-14 22:00] VITALS: PULSE 81; RESP 16; O2SAT 96
[2020-06-15] MEDS: 0.9% Normal Saline 1,000 ML 75 ML IV (02:30)
[2020-06-15 06:29] VITALS: BP 121/77; BP 126/72; BP 130/71; PULSE 74; PULSE 75; PULSE 78
[2020-06-15 07:31] VITALS: BP 121/77; PULSE 74; RESP 18; TEMP 36.7; O2SAT 96
[2020-06-15] MEDS: Lacosamide 50 MG Tablet 150 MG PO ×2 (07:57→20:47)
[2020-06-15] MEDS: Calcium (Elemental) 500 MG Tablet PO ×2 (07:58→20:46)
[2020-06-15] MEDS: Gabapentin 300 MG Capsule PO ×2 (07:58→20:46)
[2020-06-15] MEDS: lamoTRIgine 100 MG Tablet 125 MG PO (07:58)
[2020-06-15] MEDS: Magnesium Chloride 64 MG Delay Rel.Tablet 128 MG PO (07:58)
[2020-06-15 07:59] VITALS: PULSE 74
[2020-06-15] MEDS: Metoprolol(XL)Succ 25 MG Tablet PO (07:59)
[2020-06-15] MEDS: Cyanocobalamin 500 MCG Tablet 1000 MCG PO (08:00)
[2020-06-15] MEDS: Citalopram 20 MG Tablet PO (08:00)
[2020-06-15] MEDS: Menthol/Lanolin/Calamine/Znox 113 GM Tube 1 APPLIC TOPICAL ×2 (08:05→21:10)
[2020-06-15 19:52] VITALS: BP 124/64; PULSE 70; RESP 16; TEMP 37.1; O2SAT 98
[2020-06-15] MEDS: clonazePAM 0.5 MG Tablet PO (20:44)
[2020-06-15] MEDS: lamoTRIgine 150 MG Tablet PO (20:45)
[2020-06-16 06:00] VITALS: BP 116/71; BP 119/75; PULSE 74; PULSE 89
[2020-06-16 08:31] VITALS: BP 116/71; PULSE 74; RESP 16; TEMP 36.6; O2SAT 8
[2020-06-16] MEDS: Calcium (Elemental) 500 MG Tablet PO ×2 (08:40→20:52)
[2020-06-16] MEDS: Gabapentin 300 MG Capsule PO ×2 (08:41→20:52)
[2020-06-16] MEDS: Magnesium Chloride 64 MG Delay Rel.Tablet 128 MG PO (08:41)
[2020-06-16 08:42] VITALS: BP 116/71; PULSE 74
[2020-06-16] MEDS: Metoprolol(XL)Succ 25 MG Tablet PO (08:42)
[2020-06-16] MEDS: Cyanocobalamin 500 MCG Tablet 1000 MCG PO (08:43)
[2020-06-16] MEDS: Citalopram 20 MG Tablet PO (08:43)
[2020-06-16] MEDS: lamoTRIgine 100 MG Tablet 125 MG PO (08:44)
[2020-06-16] MEDS: 0.9% Saline Lock 10 ML Syringe IV (08:48)
[2020-06-16] MEDS: Lacosamide 50 MG Tablet 150 MG PO ×2 (09:47→20:52)
[2020-06-16] MEDS: Menthol/Lanolin/Calamine/Znox 113 GM Tube 1 APPLIC TOPICAL ×2 (09:48→20:59)
[2020-06-16 20:42] VITALS: BP 105/62; PULSE 79; RESP 14; TEMP 36.3; O2SAT 94
[2020-06-16] MEDS: clonazePAM 0.5 MG Tablet PO (20:51)
[2020-06-16] MEDS: lamoTRIgine 150 MG Tablet PO (20:51)
[2020-06-17 05:37] LABS: Hematocrit 35.1 % (37-47); Hemoglobin 11.3 g/dL (12.0-15.0); Mean Corp Hgb Conc 32.2 g/dL (32-36); Mean Corpuscular Hgb 31.9 pg (27.0-32.0); Mean Corpuscular Volume 99.2 fL (81-99); Mean Platelet Vol. 9.4 fl (6.2-12.0); Platelet Count 281 K/mm3 (150-450); RBC Distribution Width CV 13.9 % (11.6-14.6); RBC Distribution Width SD 51.3 fl (35.1-43.9); Red Blood Count 3.54 M/mm3 (4.2-5.4); White Blood Count 5.4 K/mm3 (4.4-11.0)
[2020-06-17 05:57] LABS: Anion Gap 4 (5-15); BUN 17 mg/dL (7-18); BUN/Creat Ratio 17.6 RATIO (10-20); Calcium,Total 9.1 mg/dL (8.5-10.1); Chloride 106 mmol/L (98-107); Creatinine, Serum 0.97 mg/dL (0.55-1.02); EST Glomerular Filtration Rate 61 mL/min (>60); Est Glom Filt Rate - Afr Amer 74 mL/min (>60); Glucose 88 mg/dL (74-106); Potassium 4.7 mmol/L (3.5-5.1); Sodium Level 141 mmol/L (136-145)
[2020-06-17 06:00] VITALS: BP 108/68; BP 124/84; BP 125/75; PULSE 63; PULSE 75; PULSE 81
[2020-06-17 08:20] LABS: Vitamin D,25 Hydroxy 34.2 ng/mL
[2020-06-17 08:57] VITALS: BP 109/68; PULSE 69; RESP 16; TEMP 36.7; O2SAT 96
[2020-06-17 09:09] VITALS: BP 109/68; PULSE 69
[2020-06-17] MEDS: Metoprolol(XL)Succ 25 MG Tablet PO (09:09)
[2020-06-17] MEDS: Cyanocobalamin 500 MCG Tablet 1000 MCG PO (09:10)
[2020-06-17] MEDS: Calcium (Elemental) 500 MG Tablet PO ×2 (09:10→20:14)
[2020-06-17] MEDS: Citalopram 20 MG Tablet PO (09:10)
[2020-06-17] MEDS: Gabapentin 300 MG Capsule PO ×2 (09:10→20:33)
[2020-06-17] MEDS: Magnesium Chloride 64 MG Delay Rel.Tablet 128 MG PO (09:10)
[2020-06-17] MEDS: lamoTRIgine 100 MG Tablet 125 MG PO (09:11)
[2020-06-17] MEDS: Lacosamide 50 MG Tablet 150 MG PO ×2 (09:14→20:33)
--- NOTE | 2020-06-17 13:52 | PCM.PN.BLA ---
Progress Note Afebrile VSS-she is tilt negative today. Maintaining appropriate oxygen saturation on RA Oral intake is improved She had multiple bowel movements following 150 cc of magnesium citrate. She refused her stool softener today. She denies right lower quadrant pain since she has had several bowel movements. She has been incontinent of urine, especially at night. Discussed with nursing - no problems that need addressed Reviewed the PT/OT/ST notes Medication list reviewed. All lab was personally reviewed. CBC shows a low hemoglobin at 11.3 however this is stable. The MCV is mildly increased from admission and this is likely due to increased reticulocytosis. BMP shows a sodium of 141 BUN of 17 and a creatinine of 0.97. Potassium is 4.7 and calcium is 9.1. Vitamin D 25 hydroxy is within normal limits at 34.2. Denies abdominal pain, nausea, vomiting. She denies chest pain, shortness of breath, calf pain, lightheadedness. OT noted that she seems less confused than last week. She had good safety awareness today. She tells me that her neurologist had decreased the Lamictal to 100 mg p.o. twice daily and wonders why she is on an increased dose here. I told her the dose was increased because she was found to be having multiple breakthrough seizures. She feels like she is thinking more clearly now and is less foggy. She is still fearful of falling and fearful of having a seizure. We once again discussed that she needs therapy to help with this fear and increasing her medications to the point where she has intolerable side effects will not help with fear. She is basically non-functional at home and her does everything for her. He walks her to the BR with a gait belt. Alert, oriented x3, normal speech fluency, good voice quality, sitting in the recliner at the bedside eating lunch in no apparent distress Lungs-clear to auscultation Mucous membranes are more moist Heart-regular rate and rhythm, no gallop, no murmur Abdomen-soft, nontender, bowel sounds present No peripheral edema No calf tenderness No rash No seizure activity observed since admission. Impressions 1. Debility secondary to frequent falls......... I suspect this may be secondary to decreased level of alertness related to overmedication and breakthrough seizures. We will continue with the lower dose of citalopram and I recommended she not go over 20 mg daily with this medication. She continues to sleep well following discontinuation of the trazodone at bedtime. Would like to get rid of clonazepam as well. 2. Depression-stable continue to recommend psychotherapy to deal with the issues of fear related to falls and seizures. 3. Orthostatic hypotension secondary to intravascular volume depletion-resolved 4. Constipation/obstipation-resolved 5. Mild macrocytic anemia-stable. Hemoccult stool is negative but, she had a stool with blood in it t the [facility]. 6. Hypokalemia-resolved Discontinue potassium supplementation Decrease the Klonopin to 0.25 mg at HS At home prior to admission to [facility] main campus she was taking Lamictal 100mg BID and Gabapentin 300 mg TID for seizures. She had multiple seizures while having continuous video EEG monitoring and at admission to the rehab unit she was on Gabapentin 300 mg BID, Vimpat, Lamictal (being gradually increased to 150 mg BID) and a fourth medication she takes at HS for seizures. Would like tohave her come in for a therapy session to see how well she is doing and hopefully he will allow her to be more active and functional at home. The entire chart from [facility] was reviewed today. Inpatient E&M: [id number] [facility] Hosp L3
[2020-06-17 19:23] VITALS: BP 107/78; PULSE 85; RESP 18; TEMP 36.4; O2SAT 97
[2020-06-17] MEDS: Menthol/Lanolin/Calamine/Znox 113 GM Tube 1 APPLIC TOPICAL (20:23)
[2020-06-17] MEDS: clonazePAM 0.5 MG Tablet PO (20:31)
[2020-06-17] MEDS: lamoTRIgine 150 MG Tablet PO (20:32)
--- NOTE | 2020-06-17 20:44 | NURSING ---
x1 assist for toileting needs this hs and pt requires firm ethylene compressor operator on gait belt as pt lunged backwards in bathroom. Pt expressed concern about having fear of falling.
[2020-06-17 22:00] VITALS: PULSE 82; RESP 16; O2SAT 97
[2020-06-18 05:55] VITALS: BP 112/66; BP 120/76; BP 131/74; PULSE 71; PULSE 72; PULSE 83
[2020-06-18] MEDS: Cyanocobalamin 500 MCG Tablet 1000 MCG PO (07:57)
[2020-06-18] MEDS: lamoTRIgine 100 MG Tablet 125 MG PO (07:59)
[2020-06-18] MEDS: Gabapentin 300 MG Capsule PO ×2 (08:00→20:09)
[2020-06-18] MEDS: Magnesium Chloride 64 MG Delay Rel.Tablet 128 MG PO (08:00)
[2020-06-18 08:01] VITALS: BP 112/66; PULSE 69
[2020-06-18] MEDS: Metoprolol(XL)Succ 25 MG Tablet PO (08:01)
[2020-06-18] MEDS: Calcium (Elemental) 500 MG Tablet PO ×2 (08:07→20:03)
[2020-06-18] MEDS: Menthol/Lanolin/Calamine/Znox 113 GM Tube 1 APPLIC TOPICAL ×2 (08:07→20:14)
[2020-06-18] MEDS: Senna/Docusate Sodium 1 Tablet 2 TABLET PO (08:08)
[2020-06-18] MEDS: Lacosamide 50 MG Tablet 150 MG PO ×2 (08:09→20:14)
[2020-06-18 09:54] VITALS: BP 112/66; PULSE 69; RESP 16; TEMP 36.7; O2SAT 95
--- NOTE | 2020-06-18 12:24 | CASEMGMT ---
Social Work Spoke with pt's about pt's DC 06/20. Explained HC vs OP. would liked HHC, in agreement with pt and IDT. Referral made to [facility] PT/OT/ST/SN/SW. No DME needs. to transport at 1 pm. Plan: DC home 06/20 with [facility]/OT/ST/SN/SW Belen Spears, COMPLAINT MANAGER LITHARGE SUPERVISOR
--- NOTE | 2020-06-18 13:30 | PN_ITS ---
Progress Note Continues to perseverate about the dose of Lamictal and the dose of Celexa. We talk about this daily and she does not retain the information I give her. Orthostatic vital signs are negative today. She is maintaining appropriate oxygen saturation on room air. She has been afebrile since admission Speech is more fluid, less bradykinesia, oriented X 3 today Lungs-clear to auscultation Heart-regular rate and rhythm, no ectopy, no gallop Abdomen-soft, nondistended, nontender, no guarding with palpation, bowel sounds present and normal No peripheral edema No calf tenderness No tremors No focal neurologic deficits Impressions 1. physical debility due to multiple falls, overmedication with drugs that increase serotonin levels and deconditioning due to inactivity. 2. cognitive dysfunction 3. Frequent falls thought to be due to neurodegenerative disease by neurology at [facility] where she recently had VEEG. STROKE Vital Signs/Narrative: Vital Signs Temp Pulse Resp BP Pulse Ox 06/18/20 09:54 98.0 F 69 16 112/66 95 Inpatient E&M: [id number] Subs Hosp L1
[2020-06-18 19:28] VITALS: BP 95/61; PULSE 70; RESP 18; TEMP 36.4; O2SAT 97
[2020-06-18] MEDS: clonazePAM 0.5 MG Tablet PO (20:07)
[2020-06-18] MEDS: lamoTRIgine 150 MG Tablet PO (20:09)
[2020-06-18 22:00] VITALS: PULSE 81; RESP 16
[2020-06-19] MEDS: lamoTRIgine 100 MG Tablet 125 MG PO (07:45)
[2020-06-19] MEDS: Gabapentin 300 MG Capsule PO ×2 (07:47→20:54)
[2020-06-19] MEDS: Citalopram 20 MG Tablet PO (07:47)
[2020-06-19] MEDS: Cyanocobalamin 500 MCG Tablet 1000 MCG PO (07:47)
[2020-06-19] MEDS: Magnesium Chloride 64 MG Delay Rel.Tablet 128 MG PO (07:48)
[2020-06-19] MEDS: Calcium (Elemental) 500 MG Tablet PO ×2 (07:48→20:54)
[2020-06-19] MEDS: Senna/Docusate Sodium 1 Tablet 2 TABLET PO ×2 (07:49→20:54)
[2020-06-19 07:53] VITALS: BP 106/67; PULSE 68; RESP 16; TEMP 36.7; O2SAT 97
[2020-06-19 08:00] VITALS: BP 106/67; PULSE 68
[2020-06-19] MEDS: Metoprolol(XL)Succ 25 MG Tablet PO (08:00)
[2020-06-19] MEDS: Lacosamide 50 MG Tablet 150 MG PO ×2 (08:05→20:55)
[2020-06-19] MEDS: Menthol/Lanolin/Calamine/Znox 113 GM Tube 1 APPLIC TOPICAL ×2 (08:07→22:20)
[2020-06-19 08:10] VITALS: BP 104/56; BP 106/83; BP 125/88; PULSE 68; PULSE 84; PULSE 86
[2020-06-19 19:47] VITALS: BP 101/57; PULSE 73; RESP 18; TEMP 37.2; O2SAT 95
[2020-06-19] MEDS: lamoTRIgine 150 MG Tablet PO (20:55)
[2020-06-19] MEDS: clonazePAM 0.5 MG Tablet PO (21:06)
[2020-06-19 22:00] VITALS: PULSE 69; RESP 18; O2SAT 95
[2020-06-20] MEDS: Citalopram 20 MG Tablet PO (08:07)
[2020-06-20] MEDS: lamoTRIgine 150 MG Tablet PO (08:07)
[2020-06-20] MEDS: Magnesium Chloride 64 MG Delay Rel.Tablet 128 MG PO (08:07)
[2020-06-20] MEDS: Cyanocobalamin 500 MCG Tablet 1000 MCG PO (08:07)
[2020-06-20] MEDS: Senna/Docusate Sodium 1 Tablet 2 TABLET PO (08:08)
[2020-06-20] MEDS: Gabapentin 300 MG Capsule PO (08:08)
[2020-06-20] MEDS: Calcium (Elemental) 500 MG Tablet PO (08:08)
[2020-06-20] MEDS: Lacosamide 50 MG Tablet 150 MG PO (08:10)
[2020-06-20 08:12] VITALS: BP 104/65; PULSE 70
[2020-06-20] MEDS: Metoprolol(XL)Succ 25 MG Tablet PO (08:12)
[2020-06-20] MEDS: Menthol/Lanolin/Calamine/Znox 113 GM Tube 1 APPLIC TOPICAL (08:13)
[2020-06-20 08:16] VITALS: BP 104/65; PULSE 70; RESP 16; TEMP 36.6; O2SAT 98
--- NOTE | 2020-06-20 10:55 | PCM.DC ---
- Discharge Diagnoses Current Active Problems: Current Active and Chronic Problems Debility (Acute) Falls (Acute) Seizure disorder (Chronic) Gait difficulty (Chronic) Cognitive impairment (Chronic) SVT (supraventricular tachycardia) (Acute) Suicidal ideation (Chronic) Depression (Chronic) Chronic kidney disease (Chronic) Colon cancer (Chronic) Subdural hematoma (Chronic) Anxiety (Chronic) You will use the following diet at home:: Regular Your food should be the consistency of: Regular Your liquids should be the consistency of: Regular/Thin Discharge Activity: May Not Drive, May Shower, Use Walker Weight Bearing Status: Full weight bearing Additional Activity Instructions:: Do the exercises given to you by the therapists TWICE a day at least 6 days a week Call your doctor if you observe: Fever of 101 or Higher, Shortness of breath, Dizziness, Fainting spells, Chest pain, Increased palpitations (irregular heartbeat), Calf discomfort Instructions: Understanding Psychotherapy Additional Instructions: 1. The tremors you were having at admission to the rehab unit were due to Citalopram dose being too high. The highest recommended dose for someone your age is 20 mg daily. The dose was decreased to 20 mg daily while you were in the rehab unit. Trazodone in addition to Citalopram increases the advers reactions because both medications increase serotonin levels. Increased serotonin causes drowsiness, trouble walking, anxiety, tremors, elevated BP, palpitations, etc. 2. If you do not exercise and you do not walk you will lose the strength you built up in therapy and you will start falling again. Do Not sit back and let others do everything for you........keep moving and become independent with walking and activities of daily living. 3. You will be getting therapy at home. You will also have a social welfare administrator see you. 4. Therapy is only as good as what you put into it so work hard. 5. Fear will not go away with medication. Psychotherapy can help with fear. Haviong therapy once every 3 months is not going to be helpful. Find a therapist in your home town and make an appt. 6. Klonopin can cause drowsiness and confusion and lead to falls and fractures in someone your age. I think you should be weaned off this medication. You can discuss this with your family doctor. 7. If you have questions after you leave the hospital you can call the rehab unit at [phone]. Pending Tests on Discharge: none Allergies/Adverse Reactions: Allergies diazepam [From Valium] Adverse Reaction (Verified 08/04/18 17:04) Other divalproex sodium [From Depakote] Adverse Reaction (Verified 08/04/18 17:04) Other naproxen Adverse Reaction (Verified 08/04/18 17:04) Other phenobarbital Adverse Reaction (Verified 08/04/18 17:04) Other valproic acid Adverse Reaction (Verified 06/04/20 21:15) Abd cramps/diarrhea zonisamide [From Zonegran] Adverse Reaction (Verified 08/04/18 17:04) Other Medications to take at Discharge Calcium Carbonate [Calcium] 1,250 mg PO BID 08/04/18 Clonazepam [Klonopin] 0.5 mg PO QHS 08/04/18 Gabapentin [Neurontin] 300 mg PO BID 08/04/18 Acetaminophen [Tylenol Tablet] 650 mg PO Q4H PRN PRN tab 06/20/20 Citalopram [Celexa] 20 mg PO DAILY #30 tab 06/20/20 Lacosamide [Vimpat] 150 mg PO BID #60 tab 06/20/20 Lamotrigine [Lamictal] 150 mg PO BID #60 tab 06/20/20 Metoprolol(XL)Succ [Toprol Xl (Beta Torsten)] 25 mg PO DAILY #30 tab 06/20/20 The following prescriptions were given: Citalopram [Celexa] 20 mg PO DAILY #30 tab Prescription Printed Lamotrigine [Lamictal] 150 mg PO BID #60 tab Prescription Printed Metoprolol(XL)Succ [Toprol Xl (Beta Torsten)] 25 mg PO DAILY #30 tab Prescription Printed Lacosamide [Vimpat] 150 mg PO BID #60 tab Prescription Printed Primary Care Physician: Aguila Lainez MD [Primary Care Provider] - Test Results: Test results from this visit will be discussed in further detail at your follow-up appointment, if applicable. Please Follow Up With: Dr. Lainez-PCP When: Wednesday Please Follow Up With: Dr. James James-Neurology Specialist When: Please Follow Up With: Dr. Marcos Boyd-Nephrology When: Wednesday Please Follow Up With: [facility] When: Proposed Discharge Date: 06/20/20
[2020-06-20 11:25] VITALS: BP 104/65; PULSE 70; RESP 16; TEMP 36.6; O2SAT 98
--- NOTE | 2020-06-20 11:27 | PCM.DC.SUM ---
Discharge Date and Diagnosis - Problem List Patient Problems: Active and Suspected Problems Debility (Acute) SVT (supraventricular tachycardia) (Acute) Date of Admission: 06/04/20 Date of Discharge: 06/20/20 - Primary Discharge Diagnosis Acute Problems: Active Problems Debility (Acute) - due to frequent falls SVT (supraventricular tachycardia) (Acute) - resolved with Metoprolol started at [facility] prior to admission to [facility] rehab. The SVT could have been related to adverse reaction due to elevated serotonin levels due to combined use of A high dose of Citalopram (40 mg....20 mg in the highest recommended dose in this age range) and Trazodone. May be able to DC in the future. Hypokalemia-resolved Orthostatic hypotension secondary to decreased intra-vascular volume secondary to poor oral intake-resolved Constipation-resolved Mild macrocytic anemia-stable. Hemoccult stool was negative. - Secondary Discharge Diagnosis Chronic Problems: Chronic Problems Chronic prescription benzodiazepine use (Chronic) Falls (Chronic) Seizure disorder (Chronic) Gait difficulty (Chronic) Cognitive impairment (Chronic) Suicidal ideation in the past(Chronic) not currently Depression (Chronic) Chronic kidney disease stage III (Chronic) Colon cancer-status post partial colectomy (Chronic) Colon polyps x2 in 2019-benign Subdural hematoma - resolved Anxiety (Chronic) Hospital Course and Treatment Imaging Results: Clinical Impression(s) from Imaging Studies KUB X-Ray 06/14/20 12:11 IMPRESSION: Moderate fecal retention. Electronically Signed: Nikko Conway MD at 16:58 EDT , Service support , Laboratory Last Values WBC 5.4 K/mm3 (4.4-11.0) 06/17/20 05:25 RBC 3.54 M/mm3 (4.2-5.4) L 06/17/20 05:25 Hgb 11.3 g/dL (12.0-15.0) L 06/17/20 05:25 Hct 35.1 % (37-47) L 06/17/20 05:25 MCV 99.2 fL (81-99) H 06/17/20 05:25 MCH 31.9 pg (27.0-32.0) 06/17/20 05:25 MCHC 32.2 g/dL (32-36) 06/17/20 05:25 RDW Std Deviation 51.3 fl (35.1-43.9) H 06/17/20 05:25 RDW Coeff of Lance 13.9 % (11.6-14.6) 06/17/20 05:25 Plt Count 281 K/mm3 (150-450) 06/17/20 05:25 MPV 9.4 fl (6.2-12.0) 06/17/20 05:25 Immature Gran % (Auto) 0.200 % (0.0-0.9) 06/05/20 05:35 Neut % (Auto) 62.0 % (47-70) 06/05/20 05:35 Lymph % (Auto) 25.3 % (19-41) 06/05/20 05:35 Brown % (Auto) 10.9 % (0-10) H 06/05/20 05:35 Eos % (Auto) 1.1 % (0-5) 06/05/20 05:35 Baso % (Auto) 0.5 % (0-1) 06/05/20 05:35 Absolute Neuts (auto) 3.4 X10^3/uL (2.0-7.7) 06/05/20 05:35 Absolute Lymphs (auto) 1.39 X10^3/uL (0.83-4.51) 06/05/20 05:35 Nucleated RBC % 0 % (0-5) 06/05/20 05:35 Sodium 141 mmol/L (136-145) 06/17/20 05:25 Potassium 4.7 mmol/L (3.5-5.1) 06/17/20 05:25 Chloride 106 mmol/L (98-107) 06/17/20 05:25 Carbon Dioxide 31.0 mmol/L (21.0-32.0) 06/17/20 05:25 Anion Gap 4 (5-15) L 06/17/20 05:25 BUN 17 mg/dL (7-18) 06/17/20 05:25 Creatinine 0.97 mg/dL (0.55-1.02) 06/17/20 05:25 Estim Creat Clear Calc 43.90 ml/min 06/17/20 05:25 Est GFR (MDRD) Af Amer 74 mL/min (>60) 06/17/20 05:25 Est GFR (MDRD) Non-Af 61 mL/min (>60) 06/17/20 05:25 BUN/Creatinine Ratio 17.6 RATIO (10-20) 06/17/20 05:25 Glucose 88 mg/dL (74-106) 06/17/20 05:25 Calcium 9.1 mg/dL (8.5-10.1) 06/17/20 05:25 Phosphorus 3.4 mg/dL (2.5-4.9) 06/14/20 05:35 Magnesium 2.4 mg/dL (1.6-2.6) 06/14/20 05:35 Total Bilirubin 0.40 mg/dL (0.20-1.00) 06/05/20 05:35 AST 28 U/L (15-37) 06/05/20 05:35 ALT 41 U/L (13-56) 06/05/20 05:35 Alkaline Phosphatase 49 U/L (45-117) 06/05/20 05:35 Total Protein 7.2 g/dL (6.4-8.2) 06/05/20 05:35 Albumin 3.7 g/dL (3.2-5.0) 06/05/20 05:35 Globulin 3.5 g/dL (2.2-4.2) 06/05/20 05:35 Albumin/Globulin Ratio 1.1 RATIO (0.9-2.4) 06/05/20 05:35 Vitamin D 25-Hydroxy 34.2 ng/mL 06/17/20 05:25 Urine Color Yellow (Yellow) 06/05/20 21:25 Urine Clarity Clear (Clear) 06/05/20 21:25 Urine pH 6.5 (5.0 - 8.0) 06/05/20 21:25 Ur Specific Burns 1.015 (1.002-1.030) 06/05/20 21:25 Urine Protein Negative mg/dl (Negative) 06/05/20 21:25 Urine Glucose (UA) Normal mg/dl (Normal) 06/05/20 21:25 Urine Ketones Negative mg/dl (Negative) 06/05/20 21:25 Urine Occult Blood 150 /ul (Negative) H 06/05/20 21:25 Urine Nitrite Negative (Negative) 06/05/20 21:25 Urine Bilirubin Negative mg/dL (Negative) 06/05/20 21:25 Urine Urobilinogen Normal mg/dl (Normal) 06/05/20 21:25 Ur Leukocyte Esterase 100 /ul (Negative) H 06/05/20 21:25 Urine RBC 0-5 SEEN /hpf (0-5) 06/05/20 21:25 Urine WBC 0-5 SEEN /hpf (0-5) 06/05/20 21:25 Ur Squamous Epith Cells 0 SEEN /hpf (5-10) 06/05/20 21:25 Urine Bacteria 0 SEEN /hpf (None Seen) 06/05/20 21:25 Urine Mucus 0 SEEN /hpf (<or=2+) 06/05/20 21:25 Microbiology 06/14/20 21:15 Stool Stool Occult Blood (TINA) - Final negative 06/05/20 21:25 Urine, Catheterized Urine Culture - Final Lactobacillus gasseri none Operations: None Procedures: None Summary of Care Provided: The patient is a 70 year old F with a PMH of bitemporal seizures, history of right temporal lobectomy in 1994, depression, anxiety, chronic benzodiazepine use, colon cancer, colon polyps and cognitive dysfunction who was admitted to the inpt acute rehab unit at [facility] on 06/04/2020 from [facility] where she was admitted for video EEG to determine the etiology of frequent falls she had at home. She had breakthrough seizures while at [facility] and AED's were changed. Gabapentin was decreased to 300 mg BID due to age/creat clearance, Lamictal was increased to 150 mg BID and Vimpat 150 mg BID was added to the drug regimen. Even though she had breakthrough seizures the frequent falls were thought to be more likely due to neurodegenerative disease. While at [facility] she had SVT and was started on Metoprolol. The SVT could have been related to the increased serotonin levels and she may be able to come off this medication in the future. Upon her arrival at rehab she was having tremors of her head and hands. Her movements were slow and deliberate. She had weakness of the legs BL. She was taking 2 medications that increase Serotonin levels, Citalopram 40 mg and Trazodone. The highest recommended dose of Citalopram in patients over the age of 60 is 20 mg. This could be contributing to confusion, dysequilibrium, SVT and falls. The Citalopram was decreased to 20 mg daily and Trazodone was discontinued. She was kept on Klonopin 0.5 mg Q HS and she continued to sleep well for the duration of her stay in rehab. The tremor completely resolved and she was more alert and not as bradykinetic. She progressed across all goals with ST but still requires min - mod verbal curing to improve use of strategies to improve memory, word retrieval and problem solving. She was ambulating 120 ft with a FWW and fluctuated between CGA and Mary for safety. She was able to ascend and descend 5 steps at CGA with going up and Min A going down for safety. She is SBA with bathing and supervision with grooming and upper body dressing. She requires MIN A with lower body dressing. She is SBA or CGA with toileting and showering. She has persistent fear that she is going to have a fall or a seizure. She is minimally active at home and does not exercise. I suspect deconditioning contributes significantly to falls/weakness. At the time of DC her speech was fluent and she could carry on a conversation without difficulty. She is perseverating about the Klonopin and the fact that her PCP and myself would like to see her get off this medication as it can impair memory and contribute to falls. She is also perseverating about the number of seizure medications she is on. I have discussed this with her several times during her admission to rehab and she is not able to retain this information. I stressed to her that if she is to remain functional she is going to have to do more with managing her ADL's and work on strategies to assist with memory. She can not allow others to do everything for her and expect to be able to ambulate safely. She was discharged on 06/20/20 in stable condition. She had improved in all aspects of therapy and she is going to have [facility] for PT/OT/ST/SN and SW. She appears older than her stated age She is alert, Speech is more fluent than at admission. She is moving better and not bradykinetic in her movements any longer. She no longer has any tremors of the hands or her head. MM - dry..... This is chronic and we are continually reminding her to improve her fluid intake. She is doing better on most days. Lungs - CTA with good air exchange H-RRR, no no gallop no edema abd - soft and NT no calf tenderness No focal neurologic deficits No rashes, no wounds This note was generated with [employer] dictation software. It may contain incorrect words, spelling, and punctuation that were not noted in checking the note before signing. [] Patient Problems: Active and Suspected Problems Debility (Acute) SVT (supraventricular tachycardia) (Acute) - Physical Exam Vitals/I&O's: Vital Signs Temp Pulse Resp BP Pulse Ox 97.9 F 70 16 104/65 98 06/20/20 08:16 06/20/20 08:16 06/20/20 08:16 06/20/20 08:16 06/20/20 08:16 Oxygen Delivery Method Room Air Weight: 118 lb Body Mass Index (BMI) 21.0 Orthostatic Vital Signs Start: 06/13/20 18:20 Freq: 0600 Status: Active Protocol: Activity Type Activity Date Activity User E-Sign Co-Sign Detail Recorded Client Recorded Date Recorded By Document 06/19/20 08:10 JAGJIT [id number] 06/19/20 08:17 JAGJIT 06/19/20 08:10 Orthostatic Vitals Standing -Blood Pressure (90/60-120/80 mm Hg) 106/83 H -Extremity Use Right Arm -Pulse Rate (60-100 beats/min) 86 Sitting -Blood Pressure (90/60-120/80 mm Hg) 125/88 H -Extremity Use Right Arm -Pulse Rate (60-100 beats/min) 84 Lying -Blood Pressure (90/60-120/80 mm Hg) 104/56 L -Extremity Use Right Arm -Pulse Rate (60-100 beats/min) 68 Intake and Output for Last 24 Hours 06/18/20 06/19/20 06/20/20 23:59 23:59 23:59 Intake Total 1260 / 1260 2040 / 2040 480 / 480 Output Total 1850 / 1850 1700 / 1700 500 / 500 Balance -590 / -590 340 / 340 -20 / -20 Current Medications Acetaminophen (Tylenol) 650 mg PO Q4H PRN PRN PRN Reason: Pain Score 1-10/10 Last Admin: 06/07/20 16:16 Dose: 650 mg Documented by: Bisacodyl (Dulcolax) 10 mg RECTAL .PRN X 1 PRN PRN Reason: Constipation Calamine/Phenol (Calmoseptine Ointment) 1 applic TOPICAL BID [facility]; Protocol Last Admin: 06/20/20 08:13 Dose: 1 applicatio Documented by: Calcium Carbonate (Os-Rudy 500) 500 mg PO BID [facility] Last Admin: 06/20/20 08:08 Dose: 500 mg Documented by: Citalopram Hydrobromide (Celexa) 20 mg PO DAILY [facility] Last Admin: 06/20/20 08:07 Dose: 20 mg Documented by: Clonazepam (Klonopin) 0.5 mg PO QHS [facility] Last Admin: 06/19/20 21:06 Dose: 0.5 mg Documented by: Cyanocobalamin (Vitamin B12) 1,000 mcg PO DAILY@0800 [facility] Last Admin: 06/20/20 08:07 Dose: 1,000 mcg Documented by: Gabapentin (Neurontin) 300 mg PO BID [facility] Last Admin: 06/20/20 08:08 Dose: 300 mg Documented by: Lacosamide (Vimpat) 150 mg PO BID [facility] Last Admin: 06/20/20 08:10 Dose: 150 mg Documented by: Lamotrigine (Lamictal) 150 mg PO BID [facility] Last Admin: 06/20/20 08:07 Dose: 150 mg Documented by: Magnesium Chloride (Mag64) 128 mg PO DAILY [facility] Last Admin: 06/20/20 08:07 Dose: 128 mg Documented by: Magnesium Hydroxide (Milk Of Magnesia) 30 ml PO .PRN X 1 PRN PRN Reason: Constipation Last Admin: 06/05/20 16:44 Dose: 30 ml Documented by: Metoprolol Succinate (Toprol Xl (Beta Torsten)) 25 mg PO DAILY [facility] Last Admin: 06/20/20 08:12 Dose: 25 mg Documented by: Nutritional Formula (Lactose Free) (Ensure Enlive) 120 ml PO 4X/DAY [facility] Last Admin: 06/20/20 08:07 Dose: Not Given Documented by: Senna/Docusate Sodium (Senokot-S, Ely-Colace) 2 tablet PO BID [facility] Last Admin: 06/20/20 08:08 Dose: 2 tablet Documented by: Sodium Chloride () 10 - 40 ml IV UD PRN PRN Reason: SALINE FLUSH Last Admin: 06/16/20 08:48 Dose: 10 ml Documented by: Discharge Activity: May Not Drive, May Shower, Use Walker Weight Bearing Status: Full weight bearing Additional Activity Instructions:: Do the exercises given to you by the therapists TWICE a day at least 6 days a week Call your doctor if you observe: Fever of 101 or Higher, Shortness of breath, Dizziness, Fainting spells, Chest pain, Increased palpitations (irregular heartbeat), Calf discomfort Home Medications: Medications to take at Discharge Calcium Carbonate [Calcium] 1,250 mg PO BID 08/04/18 Clonazepam [Klonopin] 0.5 mg PO QHS 08/04/18 Gabapentin [Neurontin] 300 mg PO BID 08/04/18 Acetaminophen [Tylenol Tablet] 650 mg PO Q4H PRN PRN tab 06/20/20 Citalopram [Celexa] 20 mg PO DAILY #30 tab 06/20/20 Lacosamide [Vimpat] 150 mg PO BID #60 tab 06/20/20 Lamotrigine [Lamictal] 150 mg PO BID #60 tab 06/20/20 Metoprolol(XL)Succ [Toprol Xl (Beta Torsten)] 25 mg PO DAILY #30 tab 06/20/20 Following Prescriptions Were Given to Patient: Citalopram [Celexa] 20 mg PO DAILY #30 tab Prescription Printed Lamotrigine [Lamictal] 150 mg PO BID #60 tab Prescription Printed Metoprolol(XL)Succ [Toprol Xl (Beta Torsten)] 25 mg PO DAILY #30 tab Prescription Printed Lacosamide [Vimpat] 150 mg PO BID #60 tab Prescription Printed Primary Care Physician: Aguila Lainez MD [Primary Care Provider] - Please Follow Up With: Dr. Lainez-PCP When: Wednesday Please Follow Up With: Dr. James James-Neurology Specialist When: Please Follow Up With: Dr. Marcos Boyd-Nephrology When: Wednesday Please Follow Up With: [facility] When: Patient Instructions: Understanding Psychotherapy Disposition: Home with Home Health Minutes spent on discharge:: 45 Patient Condition:: Stable - She has improved in all aspects of speech therapy/Occupational Therapy/physical therapy since admission to the rehab unit. Medical Necessity - Tobacco Use Smoking Status: Former smoker Tobacco Use: Non-smoker Meaningful Use Info Meaningful Use Diagnoses (Choose all that apply): None applicable Inpatient E&M: 23229 Disch Hosp
--- NOTE | 2020-06-20 14:16 | NURSING ---
pt discharged home with via car transport.
== END 2020-06-20 14:15 | disposition home health service (06) | DRG 310 ==
PROVIDERS: Internal Medicine; Admitting Provider Family Medicine Geriatric Medicine; Visit Provider Family Medicine Geriatric Medicine
DX: I47.1 Supraventricular tachycardia (principal); G40.909 Epilepsy, unspecified, not intractable, without status epilepticus; R26.9 Unspecified abnormalities of gait and mobility; F32.9 Major depressive disorder, single episode, unspecified; F41.9 Anxiety disorder, unspecified; Z87.891 Personal history of nicotine dependence; E87.6 Hypokalemia; E53.8 Deficiency of other specified B group vitamins; R29.6 Repeated falls; D53.9 Nutritional anemia, unspecified; I95.1 Orthostatic hypotension; N18.3 Chronic kidney disease, stage 3 (moderate); R25.1 Tremor, unspecified
CPT/HCPCS: 36415; 74018; 80048; 80053; 81001; 82274; 82306; 83735; 84100; 85025; 85027; 87077; 87086; 87088; 92507; 92523; 97110; 97112; 97116; 97129; 97130; 97150; 97162; 97166; 97530; 97535; 97802; 97803; 99251; J7030; A4216; G0463

== ENCOUNTER 2020-08-07 12:18 | Emergency (ER) | payer MEDICARE, OTHER, SELFPAY ==
[2020-08-07] VITALS (7 sets, daily range): BP systolic 146–163; BP diastolic 100–105; PULSE 88–94; RESP 16–18; TEMP 34.8; O2SAT 95–98; BMI 21.0
--- NOTE | 2020-08-07 12:24 | ED.RN ---
Salomon mabry- daughter [phone]
--- NOTE | 2020-08-07 14:22 | ED.RN ---
this rn contacted daughter and asked that she come sit with pt. pt has been somewhat confused and this rn does not feel pt is able to answer questions appropriately
--- NOTE | 2020-08-07 15:20 | CT_ITS ---
STUDY: CT BRAIN WITHOUT CONTRAST REASON FOR EXAM: Female, 70 years old. Change in mental status. Seizure 3 days ago. History of epilepsy. History of right temporal lobectomy with vagal nerve stimulator and tympanic aspiration. RADIATION DOSAGE (If Supplied By Facility): CTDIvol = ( 44.99 ) mGy, DLP = ( 779.24 ) mGycm TECHNIQUE: Transaxial CT imaging of the brain was performed without administration of intravenous contrast material. Individualized dose optimization techniques were used for this CT. COMPARISON: CT of the head, 08/04/2018. FINDINGS: Normal soft tissue structures. There is evidence of remote right temporal craniotomy. There are surgical repair of the right facial bone fractures seen on the previous examination. There is encephalomalacia of the right anterior temporal lobe with mild widening of the right sylvian fissure. Normal size ventricles and extra-axial spaces for the patient''s age. Normal white matter tracts of the cerebral hemispheres. There is a remote lacunar infarct in the left posterior basal ganglia are thought to be related to the surgical changes immediately below. Normal left basal ganglia and bilateral thalami. Normal brainstem. Normal cerebellum. There is no intracranial hemorrhage. There are no findings of an acute ischemic infarction. Normal visualized paranasal sinuses. CT/Brain/Head without Contrast IMPRESSION: 1. Stable evidence of right temporal craniotomy with associated encephalomalacia. There is no evidence of acute intracranial or calvarial abnormality or interval change. 2. Surgical repair of the right facial bone fractures seen on the previous study. Electronically Signed: Vikas Comer DO at 17:05 EST Tel [phone], Service support ,
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
[2020-08-07 15:58] LABS: Absolute Lymphocyte Count 1.47 X10^3/uL (0.83-4.51); Absolute Neutrophil Count 5.1 X10^3/uL (2.0-7.7); Basophil# 0.02 X10^3/uL; Basophil% 0.3 % (0-1); Eosinophil# 0.01 X10^3/uL; Eosinophils% 0.1 % (0-5); Hematocrit 41.2 % (37-47); Hemoglobin 13.3 g/dL (12.0-15.0); Lymphocyte # 1.47 X10^3/ul (4.0); Lymphocyte % 20.6 % (19-41); Mean Corp Hgb Conc 32.3 g/dL (32-36); Mean Corpuscular Hgb 31.5 pg (27.0-32.0); Mean Corpuscular Volume 97.6 fL (81-99); Mean Platelet Vol. 9.6 fl (6.2-12.0); Monocyte# 0.55 X10^3/uL; Monocyte% 7.7 % (0-10); NRBC Flagged by Analyzer 0 % (0-5); Neutrophil # 5.07 X10^3/uL (2.7-7.7); Neutrophil % 71.2 % (47-70); Platelet Count 255 K/mm3 (150-450); RBC Distribution Width CV 12.5 % (11.6-14.6); RBC Distribution Width SD 45.3 fl (35.1-43.9); Red Blood Count 4.22 M/mm3 (4.2-5.4); White Blood Count 7.1 K/mm3 (4.4-11.0)
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
[2020-08-07 16:13] LABS: Anion Gap 7 (5-15); BUN 16 mg/dL (7-18); BUN/Creat Ratio 13.9 RATIO (10-20); Calcium,Total 9.4 mg/dL (8.5-10.1); Chloride 105 mmol/L (98-107); Creatinine, Serum 1.15 mg/dL (0.55-1.02); EST Glomerular Filtration Rate 50 mL/min (>60); Est Glom Filt Rate - Afr Amer 60 mL/min (>60); Estimated Creatinine Clearance 38.73 ml/min; Glucose 109 mg/dL (74-106); Potassium 3.6 mmol/L (3.5-5.1); Sodium Level 141 mmol/L (136-145)
--- NOTE | 2020-08-07 16:22 | CM.ED ---
Social Work Call to [facility] for inpatient psych placement, spoke with Francine. Per Francine, does have beds available. Francine requested all information be faxed once negative COVID-19 results received. Lucila Spangler, IT PROJECT COORDINATOR, ELECTRICIAN'S ASSISTANT
[2020-08-07 16:28] LABS: Alcohol, Blood (Medical)-Serum < 3.0 mg/dL
[2020-08-07 16:30] LABS: Amphetamine Urine VISTA NEGATIVE (<1000 ng/mL); Barbiturate Urine VISTA NEGATIVE (< 200 ng/mL); Benzodiazepine Urine VISTA NEGATIVE (< 200 ng/mL); Cocaine Urine VISTA NEGATIVE (< 300 ng/mL); Ecstacy Urine VISTA NEGATIVE (< 500 ng/mL); Methadone Urine VISTA NEGATIVE (< 300 ng/mL); PCP Urine VISTA NEGATIVE (< 25 ng/mL); THC Urine VISTA NEGATIVE (< 50 ng/mL); Vista UDS pH Range 5
[2020-08-07 17:46] LABS: Probe Check PASS; Specimen Processing Control PASS
--- NOTE | 2020-08-07 17:56 | CM.ED ---
SOCIAL WORK Negative COVID-19 results received. Referral faxed to [facility] for inpatient psych placement. Referral pending at this time. Lucila Spangler, DRYING UNIT FELTING MACHINE OPERATOR, OCULAR CARE TECHNICIAN
--- NOTE | 2020-08-07 18:13 | CM.ED ---
SOCIAL WORK Call to [facility] to confirm referral received. Awaiting call back from admissions workerFrancine at this time. Lucila Spangler, WIRE TINNER, HEAD DOFFER
--- NOTE | 2020-08-07 19:07 | CM.ED ---
Addendum entered by Serenity Spangler 08/07/20 19:12: Call to patient's daughter, Salomon to update on status of placement. Original Note: SOCIAL WORK Call to Francine with [facility] to check on status of referral. Per Francine our ER blew up and we have to take those patient's first. Francine recommending this worker look into additional placement option and will call this worker back if able to accept patient. This worker to refer to [facility] at this time. Lucila Spangler, HEAD WELL PULLER, POULTRY PATHOLOGIST
--- NOTE | 2020-08-07 19:58 | CM.ED ---
SOCIAL WORK Call from Cameron with [facility]. Patient accepted to [facility] by LUCIA Ortez to the geriatric unit. Nurse to call report to option 1. Patient, daughter and staff updated. Math And Science Instructor to set up transport. [place] [facility] faxed per request. Lucila Spangler, LABORER CONCRETE PLANT, BODY COVERER
[2020-08-07] MEDS: LORazepam 0.5 MG Tablet PO (20:51)
== END 2020-08-07 21:25 ==
PROVIDERS: Emergency Provider Emergency Medicine
DX: R45.851 Suicidal ideations (principal); G40.909 Epilepsy, unspecified, not intractable, without status epilepticus; Z79.899 Other long term (current) drug therapy; Z87.891 Personal history of nicotine dependence
CPT/HCPCS: 70450; 80048; 80307; 80320; 85025; 87635; 99284; G0480; U0002